=== PATIENT | female | born 1955 | race Caucasian/White ===

== ENCOUNTER 2018-02-17 18:29 | Outpatient (REF) | payer MEDICAID, SELFPAY ==
[2018-02-17 21:39] LABS: INR 1.1 (1.0-3.5); Prothrombin Time 10.4 sec (9.3-10.8)
[2018-02-17 21:42] LABS: ALT 29 U/L (12-78); AST 18 U/L (15-37); Albumin 3.6 g/dL (3.4-5.0); Alkaline Phosphatase 115 U/L (46-116); Anion Gap 9.8 mmol/L (3-11); BUN 15 mg/dL (7-18); Bilirubin, Total 0.3 mg/dL (0.2-1.0); CO2 28.2 mmol/L (21.0-32.0); CREATININE 0.74 mg/dL (0.55-1.02); Chloride 102 mmol/L (98-107); Glucose 140 mg/dL (70-100); Lipase 104 U/L (73-393); Potassium 3.7 mmol/L (3.5-5.1); Sodium 140 mmol/L (136-145); Total Protein 6.6 g/dL (6.4-8.2)
[2018-02-17 21:55] LABS: HCT 42.3 % (36.0-46.0); HGB 14.7 g/dL (12.0-15.5); Mean Corp. HGB Concentration 34.8 g/dL (32.0-36.0); Mean Corpuscular Hemoglobin 30.1 pg (27.0-33.0); Mean Corpuscular Volume 86.7 fL (80-95); Mean Platelet Volume 11.5 fL (8.0-11.0); Platelet Count 265 x1000/uL (130-400); RBC 4.88 m/cumm (4.00-5.20); RBC Distribution Width 12.8 % (11.7-14.6); White Blood Cell Count 8.25 k/cumm (4.4-10.8)
== END 2018-02-17 18:49 ==
LOC: NCHCN 18:29
PROVIDERS: PCP Nurse Practitioner Family; Visit Provider Internal Medicine
DX: K92.0 Hematemesis (principal); R10.31 Right lower quadrant pain
CPT/HCPCS: 80053; 83690; 85027; 85610

== ENCOUNTER 2018-02-22 11:45 | Day surgery (SDC) | payer MEDICAID, SELFPAY ==
[2018-02-22 11:50] VITALS: BP 169/72; PULSE 57; RESP 16; TEMP 36.4; O2SAT 99
[2018-02-22] MEDS: Lactated Ringers 1,000 ML 30 ML IV (12:45)
--- NOTE | 2018-02-22 16:34 | W.PM.OP ---
Date of service: 02/22/18 Time of Service: 16:35 Operative Note DATE OF PROCEDURE: 02/22/18 PRE-OP DIAGNOSIS: Hematemesis POST-OP DIAGNOSIS: other (Normal upper gastrointestinal endoscopy) PROCEDURE: Esophagogastroduodenoscopy SURGEON: Eduardo Foster ANESTHESIA: MAC (Paulette Zee CRNA; ASA 3 Mallampati class II) ESTIMATED BLOOD LOSS: 0 PATHOLOGY: none sent COMPLICATIONS: None Patient was transported to: same day Patient's condition: stable Indications: 62-year-old female who approximately 1 week ago had a episode of hematemesis. She describes feeling a sharp burning pain in her stomach several hours after eating; this was followed by throwing up blood in the form of coffee-ground emesis. She only had the one episode and has had no hematemesis and since then. She denies any melena. Was recommended she undergo upper endoscopy. The procedure was reviewed with her, and the risks discussed. All her questions were answered to her satisfaction. Consent was obtained to proceed with esophagogastroduodenoscopy. Findings: On examining the upper gastrointestinal tract from the oropharynx to the third portion of the duodenum, no abnormalities were found. No active bleeding was seen nor evidence of stigmata of bleeding. Procedure Description: The patient was brought to the procedure room. Monitoring for telemetry, end-tidal CO2, O2 saturation, blood pressure were applied. An appropriate timeout was taken reviewing the patient's identification, allergies, medications,and procedure. A bite was placed, and sedation was titrated for effect by the MACHINE ZIPPER TRIMMER. An Olympus variable stiffness endoscope was advanced from the oropharynx to the third portion of the duodenum without difficulty. The scope was then withdrawn in circumferential manner from the duodenum back to the oropharynx. In performing withdrawal of the scope, the duodenum appeared grossly normal. The scope was withdrawn into the gastric antrum and retroflexed to examine the entire stomach, and no abnormalities of the gastric antrum, anterior, posterior surfaces of the stomach, lesser curvature, greater curvature, and fundus were noted. The scope was then withdrawn to the GE junction which I measured at 35 cm The Z line was at 35 cm and appeared regular. I withdrew the scope through the remainder of the esophagus all which appear grossly normal. Scope was then withdrawn terminating the upper endoscopy. Plan: No cause for hematemesis seen on upper endoscopy.
--- NOTE | 2018-02-22 16:42 | W.PM.DSUDISC ---
Discharge Plan Disposition Patient Disposition: HOME Condition: Good Discharge Details Reason For Visit: HEMATEMESIS Attending Provider: Eduardo Foster Primary Care Provider: Irena Sesay Home Meds and New Rx's Prescriptions: Continue pantoprazole [address] for susp in packet 40 mg PO BID RF: 0 diltiazem HCl 180 mg capsule,extended release 24hr 180 mg PO DAILY RF: 0 pravastatin 40 MG tablet 40 mg PO DAILY RF: 0 aspirin [Aspir-Low] 81 MG tablet,delayed release (DR/EC) 81 mg PO DAILY RF: 0 losartan 100 MG tablet 100 mg PO DAILY RF: 0 Discharge Instructions Instructions: Upper Endoscopy (DC) Activity:: Activity as Tolerated Diet:: As Tolerated Discharge Orders Discharge Orders: Discharge Order (Routine); Ordered 02/22/18 Ordered By: Eduardo Foster DS: Diagnosis Discharge Diagnosis (1) Hematemesis: Status: Acute Asessment and Plan: Upper endoscopy performed: Operative Note DATE OF PROCEDURE: 02/22/18 PRE-OP DIAGNOSIS: Hematemesis POST-OP DIAGNOSIS: other (Normal upper gastrointestinal endoscopy) PROCEDURE: Esophagogastroduodenoscopy SURGEON: Eduardo Foster ANESTHESIA: MAC (Paulette Zee CRNA; ASA 3 Mallampati class II) ESTIMATED BLOOD LOSS: 0 PATHOLOGY: none sent COMPLICATIONS: None Patient was transported to: same day Patient's condition: stable Indications: 62-year-old female who approximately 1 week ago had a episode of hematemesis. She describes feeling a sharp burning pain in her stomach several hours after eating; this was followed by throwing up blood in the form of coffee-ground emesis. She only had the one episode and has had no hematemesis and since then. She denies any melena. Was recommended she undergo upper endoscopy. The procedure was reviewed with her, and the risks discussed. All her questions were answered to her satisfaction. Consent was obtained to proceed with esophagogastroduodenoscopy. Findings: On examining the upper gastrointestinal tract from the oropharynx to the third portion of the duodenum, no abnormalities were found. No active bleeding was seen nor evidence of stigmata of bleeding. Procedure Description: The patient was brought to the procedure room. Monitoring for telemetry, end-tidal CO2, O2 saturation, blood pressure were applied. An appropriate timeout was taken reviewing the patient's identification, allergies, medications,and procedure. A bite was placed, and sedation was titrated for effect by the CAMPUS POLICE OFFICER. An Olympus variable stiffness endoscope was advanced from the oropharynx to the third portion of the duodenum without difficulty. The scope was then withdrawn in circumferential manner from the duodenum back to the oropharynx. In performing withdrawal of the scope, the duodenum appeared grossly normal. The scope was withdrawn into the gastric antrum and retroflexed to examine the entire stomach, and no abnormalities of the gastric antrum, anterior, posterior surfaces of the stomach, lesser curvature, greater curvature, and fundus were noted. The scope was then withdrawn to the GE junction which I measured at 35 cm The Z line was at 35 cm and appeared regular. I withdrew the scope through the remainder of the esophagus all which appear grossly normal. Scope was then withdrawn terminating the upper endoscopy. Plan: No cause for hematemesis seen on upper endoscopy.
[2018-02-22 16:49] VITALS: PULSE 61; RESP 16; TEMP 36.2; O2SAT 95
== END 2018-02-22 17:05 | disposition home or self-care (01) ==
PROVIDERS: PCP Nurse Practitioner Family; Visit Provider Surgery
PROC: 0DJ68ZZ Inspection of Stomach, Via Natural or Artificial Opening Endoscopic (ICD-10-PCS; CPT 43235; principal; 2018-02-22 14:00)
DX: K92.0 Hematemesis (principal); K21.9 Gastro-esophageal reflux disease without esophagitis
CPT/HCPCS: 43235

== ENCOUNTER 2018-06-28 10:37 | Outpatient (REF) | payer MEDICAID, SELFPAY ==
[2018-06-28 12:40] LABS: TSH (W/Ref FT4) 3.25 uIU/mL (0.358-3.74)
[2018-06-29 10:26] LABS: Hepatitis C Ab w Rflx HCV PCR Negative (NEGAT)
== END 2018-06-28 10:57 ==
LOC: NCHCN 10:37
PROVIDERS: PCP Nurse Practitioner Family; Visit Provider Nurse Practitioner Family
DX: E03.9 Hypothyroidism, unspecified (principal); R60.0 Localized edema; R00.1 Bradycardia, unspecified; F32.9 Major depressive disorder, single episode, unspecified; E78.5 Hyperlipidemia, unspecified; K21.9 Gastro-esophageal reflux disease without esophagitis; Z11.59 Encounter for screening for other viral diseases
CPT/HCPCS: 86803; 84443

== ENCOUNTER 2018-08-09 17:57 | Outpatient (REF) | payer MEDICAID, SELFPAY ==
[2018-08-09 21:26] LABS: HGB 15.6 g/dL (12.0-15.5); Mean Corp. HGB Concentration 34.7 g/dL (32.0-36.0); Mean Corpuscular Hemoglobin 29.5 pg (27.0-33.0); Mean Corpuscular Volume 85.2 fL (80-95); Mean Platelet Volume 11.6 fL (8.0-11.0); Platelet Count 301 x1000/uL (130-400); RBC 5.28 m/cumm (4.00-5.20); RBC Distribution Width 12.8 % (11.7-14.6); White Blood Cell Count 14.42 k/cumm (4.4-10.8)
[2018-08-09 21:33] LABS: ALT 32 U/L (12-78); AST 19 U/L (15-37); Albumin 3.9 g/dL (3.4-5.0); Alkaline Phosphatase 108 U/L (46-116); Anion Gap 9.3 mmol/L (3-11); BUN 9 mg/dL (7-18); Bilirubin, Total 0.4 mg/dL (0.2-1.0); CO2 26.7 mmol/L (21.0-32.0); CREATININE 0.69 mg/dL (0.55-1.02); Chloride 102 mmol/L (98-107); Glucose 120 mg/dL (70-100); Potassium 3.9 mmol/L (3.5-5.1); Sodium 138 mmol/L (136-145); Total Protein 7.2 g/dL (6.4-8.2)
[2018-08-09 22:18] LABS: Bilirubin Negative (Negative); Blood Large (Negative); Glucose >=1000 mg/dL (Negative); Ketones Trace mg/dL (Negative); Leukocyte Esterase Negative (Negative); Nitrite Negative (Negative); Specific Gravity 1.025 (1.005-1.025); Urobilinogen 0.2 EU/dL (Up TO 0.2); pH 6.5 (5-8)
[2018-08-09 22:20] LABS: Clarity Cloudy
[2018-08-09 22:21] LABS: RBC >50 (0-2)
[2018-08-09 22:22] LABS: C & S Indicated? Yes
== END 2018-08-09 18:17 ==
LOC: NCHCN 17:57
PROVIDERS: PCP Nurse Practitioner Family; Visit Provider Nurse Practitioner Family
DX: R31.9 Hematuria, unspecified (principal); N95.0 Postmenopausal bleeding
CPT/HCPCS: 80053; 85027; 87077; 81003; 81015; 87086; 87186

== ENCOUNTER 2018-08-10 10:24 | Outpatient (CLI) | payer MEDICAID, SELFPAY ==
--- NOTE | 2018-08-10 14:01 | DI.US_ITS ---
SYMPTOMS/DIAGNOSIS: HEMATURIA, R31.9, POSTMENOPAUSAL BLEEDING, N95.0 RENAL AND PELVIC ULTRASOUND: The right kidney measures 11.6 cm long, the left kidney measures 11.6 cm long. No renal mass, calculus or obstruction is identified. The prevoid urinary bladder volume was 63 cc. Both ureteral jets were visualized. No intraluminal mass is seen. The patient completely emptied upon voiding. The uterus measures 9.2 cm long x 4.3 cm AP x 5.1 cm transverse. The endometrial stripe measures 0.7 cm. It is heterogeneous with cystic areas noted. No myometrial mass is present. Both the ovaries were visualized and are unremarkable. No free pelvic fluid is identified. IMPRESSION: 1. Normal renal ultrasound. No evidence of nephrolithiasis or obstructive uropathy. 2. Heterogeneous thickened endometrium. This may represent cystic hyperplasia. Mass cannot be excluded such as a polyp. Gynecologic consult should be considered for further evaluation.
== END 2018-08-10 10:44 ==
PROVIDERS: PCP Nurse Practitioner Family; Visit Provider Nurse Practitioner Family
DX: R31.9 Hematuria, unspecified (principal); N95.0 Postmenopausal bleeding; R93.89 Abnormal findings on diagnostic imaging of other specified body structures
CPT/HCPCS: 76770; 76830; 76856

== ENCOUNTER 2018-08-11 14:33 | Outpatient (REF) | payer MEDICAID, SELFPAY ==
--- NOTE | 2018-08-11 13:40 | PAPFT_PTH ---
PATIENT: Maryanne Carrasco LOC: [facility] U#:[id number] AGE/SX: 63/F ROOM: RE08/11/[address]: Mane Pearl MD : 1955 BED: DIS: 08/11/2018 SPEC #: [id number] RECD: 08/11/18 17:41 STATUS: WALLY REAlex #: [id number] NOLAN: 08/11/18 13:[address]: Mane Pearl DEPT: [facility] Cytology RECD BY: Yulissa Howard ENTERED: 08/11/18 17:41 SP TYPE: PAPFT DANIEHR DR: Irena Sesay Tissues: 1 - CX/ENDOCX FOR PAP SMEARS Procedures: PAP THIN PREP/UVM Screening HPV DNA PROBE Comments: [id number]
--- NOTE | 2018-08-11 13:40 | ENDOMET_PTH ---
PATIENT: Maryanne Carrasco LOC: [facility] U#:[id number] AGE/SX: 63/F ROOM: RE08/11/[address]: Mane Pearl MD : 1955 BED: DIS: 08/11/2018 SPEC #: [id number] RECD: 08/11/18 17:39 STATUS: WALLY REQ #: [id number] NOLAN: 08/11/18 13:[address]: Mane Pearl DEPT: Surgical Specimen RECD BY: Yulissa Howard ENTERED: 08/11/18 17:39 SP TYPE: Endomet OTHR DR: Irena Sesay Tissues: 1 - ENDOMETRIUM BX/ALEXANDER Procedures: GROSS AND MICRO LEVEL 4 Comments: [id number]
== END 2018-08-11 14:53 ==
LOC: LBN 14:33
PROVIDERS: PCP Nurse Practitioner Family; Visit Provider Obstetrics & Gynecology
DX: N85.8 Other specified noninflammatory disorders of uterus (principal); N95.0 Postmenopausal bleeding; Z12.4 Encounter for screening for malignant neoplasm of cervix; Z11.51 Encounter for screening for human papillomavirus (HPV)
CPT/HCPCS: 88142; 88305; 87624

== ENCOUNTER 2018-08-19 02:02 | Outpatient (CLI) | payer MEDICAID, SELFPAY ==
--- NOTE | 2018-08-19 09:19 | DI.MAMMO_ITS ---
SYMPTOMS/DIAGNOSIS: SCREENING, Z12.39 MAMMOGRAMS: Mammograms were interpreted according to the usual protocol including computer analysis with CAD system, tomosynthesis and C view imaging. The breasts are of moderate density with fairly symmetrical distribution of fibroglandular tissue. No dominant mass or clumped microcalcification is identified in either breast. Current examination is compared with previous examinations including August 2017 and there has been no gross interval change in appearance in comparison with the previous studies. CONCLUSION: No specific evidence of malignancy at this time. Routine screening examinations are suggested at yearly intervals due to the family history of breast carcinoma. Category 1, breast density category B. MQSA ASSESSMENT OF FINDINGS: Negative. Category 1. Patient will receive a letter notifying them of these results. BI-RADS category B. There are scattered areas of fibroglandular density.
== END 2018-08-19 02:22 ==
PROVIDERS: PCP Nurse Practitioner Family; Visit Provider Nurse Practitioner Family
DX: Z12.31 Encounter for screening mammogram for malignant neoplasm of breast (principal); Z80.3 Family history of malignant neoplasm of breast
CPT/HCPCS: 77063; 77067

== ENCOUNTER 2018-08-25 11:03 | Outpatient (REF) | payer MEDICAID, SELFPAY ==
[2018-08-25 14:11] LABS: Bilirubin Negative (Negative); Blood Trace-intact (Negative); Clarity Clear; Glucose Negative (Negative); Ketones Negative (Negative); Leukocyte Esterase Negative (Negative); Nitrite Negative (Negative); Specific Gravity 1.025 (1.005-1.025); Urobilinogen 0.2 EU/dL (Up TO 0.2); pH 6.5 (5-8)
[2018-08-25 14:42] LABS: Epithelial Cells Many HPF (Negative); WBC 0-2 HPF (0-5)
[2018-08-25 14:43] LABS: C & S Indicated? No/Sq. Contamination
== END 2018-08-25 11:23 ==
LOC: LBN 11:03
PROVIDERS: PCP Nurse Practitioner Family; Visit Provider Urology
DX: N30.91 Cystitis, unspecified with hematuria (principal)
CPT/HCPCS: 81003; 81015

== ENCOUNTER 2018-11-30 00:52 | Outpatient (CLI) | payer MEDICAID, SELFPAY ==
--- NOTE | 2018-11-30 14:23 | DI.US_ITS ---
SYMPTOMS/DIAGNOSIS: POSTMENOPAUSAL BLEEDING, N95.0, HEMATURIA, R31.9 RENAL PELVIC ULTRASOUND: Pelvic ultrasound was performed transabdominally and transvaginally. Please see the accompanying data sheet for measurements of the pelvic structures. Scanning of the kidneys is unremarkable with no hydronephrosis or nephrolithiasis. There is marked endometrial stripe thickening at about 17 mm, increased from approximately 7 mm on the previous examination of August 10, 2018. The ovaries were nonvisualized. No fluid in the cul-de-sac. Urinary bladder is unremarkable. CONCLUSION: Heterogeneous thickening endometrial lining. This is an abnormal finding in a postmenopausal patient and endometrial biopsy should be considered.
== END 2018-11-30 01:12 ==
PROVIDERS: PCP Nurse Practitioner Family; Visit Provider Nurse Practitioner Family
DX: N95.0 Postmenopausal bleeding (principal); R31.9 Hematuria, unspecified; R93.89 Abnormal findings on diagnostic imaging of other specified body structures
CPT/HCPCS: 76770; 76830; 76856

== ENCOUNTER 2018-12-30 12:55 | Outpatient (CLI) | payer MEDICAID, SELFPAY ==
[2018-12-30 14:21] LABS: HCT 41.2 % (36.0-46.0); HGB 14.4 g/dL (12.0-15.5); Mean Corpuscular Hemoglobin 29.4 pg (27.0-33.0); Mean Corpuscular Volume 84.3 fL (80-95); Mean Platelet Volume 11.2 fL (8.0-11.0); Platelet Count 282 x1000/uL (130-400); RBC 4.89 m/cumm (4.00-5.20); RBC Distribution Width 12.7 % (11.7-14.6); White Blood Cell Count 9.32 k/cumm (4.4-10.8)
== END 2018-12-30 13:15 ==
PROVIDERS: PCP Nurse Practitioner Family; Visit Provider Obstetrics & Gynecology
DX: N95.0 Postmenopausal bleeding (principal); Z01.812 Encounter for preprocedural laboratory examination; Z01.818 Encounter for other preprocedural examination
CPT/HCPCS: 36415; 85027

== ENCOUNTER 2019-01-04 07:06 | Day surgery (SDC) | payer MEDICAID, SELFPAY ==
[2018-12-30 13:11] VITALS: BP 154/87; PULSE 56; RESP 17; TEMP 36.5; O2SAT 96
[2019-01-04] VITALS (7 sets, daily range): BP systolic 118–161; BP diastolic 59–80; PULSE 52–60; RESP 9–24; TEMP 36.2–36.6; O2SAT 96–100
[2019-01-04] MEDS: Lactated Ringers 1,000 ML 125 ML IV (07:43)
[2019-01-04] MEDS: Lidocaine 1% Pres-Free 5 ML VIAL (08:42)
--- NOTE | 2019-01-04 09:42 | W.PM.OP ---
Date of service: 01/04/19 Time of Service: 09:42 Operative Note Operative Note DATE OF PROCEDURE: 01/04/19 PRE-OP DIAGNOSIS: PMB. Thickened EM on ultrasound POST-OP DIAGNOSIS: same PROCEDURE: Hysteroscopy D&C SURGEON: Mane Pearl ANESTHESIA: OMAYRA ESTIMATED BLOOD LOSS: 0 PATHOLOGY: other (Endometrial curettings) COMPLICATIONS: None Patient was transported to: PACU Patient's condition: stable Findings: Two small polyps at the level of the internal OS. Mildly thickened region along the posterior uterine wall. Procedure Description: The patient was taken to the operating room and after adequate sedation was achieved the patient was placed in lithotomy position. A speculum was placed in the vagina with good visualization of the cervix. A paracervical block with 10 cc 1% plain lidocaine solution was instilled. A single-tooth tenaculum was placed on the anterior lip of the cervix. The cervix was gently dilated with Gorman dilators and the 5 mm hysteroscope with normal saline distention media was advanced without difficulty. There were 2 small polyps noted at the level of the internal loss. The posterior uterus was minimally thickened. The remainder of the endometrial cavity showed normal and atrophic appearing endometrium. A sharp curettage was performed and specimen was submitted to pathology. A second pass with hysteroscope was made to ensure that the aforementioned polyps were completely removed. The procedure was concluded at this point. Almost mentation was removed. Sponge, instrument and needle counts were correct at the conclusion of the procedure. The patient was transferred to PACU in stable condition.
--- NOTE | 2019-01-04 09:48 | ENDOMET_PTH ---
PATIENT: Maryanne Carrasco LOC: [facility] U#:[id number] AGE/SX: 63/F ROOM: RE01/04/[address]: Mane Pearl MD : 1955 BED: DIS: 01/04/2019 SPEC #: [id number] RECD: 01/04/19 12:48 STATUS: WALLY REQ #: [id number] NOLAN: 01/04/19 09:[address]: Mane Pearl DEPT: Surgical Specimen RECD BY: Yulissa Howard ENTERED: 01/04/19 12:49 SP TYPE: Endomet OTHR DR: Irena Sesay Tissues: 1 - ENDOMETRIUM BX/ALEXANDER Procedures: GROSS AND MICRO LEVEL 4 Comments: [id number]
== END 2019-01-04 10:36 | disposition home or self-care (01) ==
PROVIDERS: PCP Nurse Practitioner Family; Visit Provider Obstetrics & Gynecology
PROC: 0UDB8ZZ Extraction of Endometrium, Via Natural or Artificial Opening Endoscopic (ICD-10-PCS; CPT 58558; principal; 2019-01-04 09:15)
DX: N95.0 Postmenopausal bleeding (principal); R93.89 Abnormal findings on diagnostic imaging of other specified body structures; N84.0 Polyp of corpus uteri; K21.9 Gastro-esophageal reflux disease without esophagitis; I10 Essential (primary) hypertension
CPT/HCPCS: 58558; 88305; J1100; J1885; J2405

== ENCOUNTER 2019-01-07 16:37 | Emergency (ER) | payer MEDICAID, SELFPAY ==
[2019-01-07 16:41] VITALS: BP 153/60; PULSE 78; RESP 16; TEMP 37.5; O2SAT 95
[2019-01-07 16:50] LABS: Bilirubin Small (Negative); Clarity Turbid (Clear); Glucose Negative (Negative); Ketones Negative (Negative); Leukocyte Esterase Small (Negative); Nitrite Positive (Negative); Specific Gravity >= 1.030 (1.005-1.025); pH 5.5 (5-8)
[2019-01-07 16:52] LABS: Blood Large (Negative)
--- NOTE | 2019-01-07 16:56 | W.ED.GENAD ---
Discharge Plan Disposition Patient Disposition: HOME Condition: Good Discharge Details Chief Complaint: Urinary Clinical Impression: Acute UTI Primary Care Provider: Irena Sesay ED Provider: Irena Mayorga Home Meds and New Rx's Prescriptions: New cephalexin [Keflex] 500 mg capsule 500 mg PO QID Qty: 27 RF: 0 phenazopyridine [Pyridium] 200 mg tablet 200 mg PO TID Qty: 6 RF: 0 No Action Cardizem LA 120 mg tablet extended release 24 hr 120 mg PO HS RF: 0 hydrochlorothiazide 12.5 mg capsule 12.5 mg PO DAILY RF: 0 pravastatin 40 MG tablet 40 mg PO HS RF: 0 losartan 100 MG tablet 100 mg PO HS RF: 0 Discharge Instructions Instructions: Urinary Tract Infection in Women (ED) Additional Instructions: Drink plenty of water as discussed. Use Pyridium as prescribed. This will stay in your urine a reddish-orange color for the next 2 days. Use antibiotic as prescribed. Urine culture pending. Rest activities as tolerated. Follow-up with Dr. Pearl in the office as discussed. Return to the emergency room for worsening symptoms, alarming symptoms such as increased abdominal pain, fevers, ill feeling, or if improvement does not occur as expected as discussed or for any changes in your symptoms as discussed. Medical Decision Making 63-year-old patient presents for complaints of hematuria, dysuria, urgency and frequency of urination. Patient is unsure if she has vaginal spotting. Patient reports lower abdominal cramping intermittently. Patient is 3 days status post D&C with Dr. Pearl. Patient is concerned that the D&C is related to the symptoms she is experiencing at this time. Patient denies back pain or associated CVA tenderness. Patient in general is well-appearing. Concerns of possible UTI versus complication status post D&C. Patient's urinalysis is impressive for likely urinary tract infection. Although UTI seems clear the possibility of endometrial injury versus endometritis remains in the differential. I spoke with on-call MACHINE PROGRAMMER Dr. Alvarez regarding this case and the lack of ultrasound at this time. She is coming to the hospital and will evaluate the patient at the bedside for concern of possible endometritis to be sure we are treating her appropriately and she needs no additional imaging testing at this time. Patient is relieved to hear the MACHINE PROGRAMMER doctor will evaluate her and feels very comfortable with this plan of care. Patient provided p.o. fluids by mouth to encourage hydration. Dr. Rubi Block evaluated patient at the bedside and performed pelvic exam feels patient has no indication at this time for endometritis or cervical motion tenderness per her report. She recommends antibiotic treatment for UTI and follow-up in the office with Dr. Pearl. Plan of care includes Keflex as well as Pyridium initial dose prior to discharge and prescriptions provided for home. The patient was stable and agrees with discharge. Prior to discharge, my usual and customary return precautions were reviewed with the patient - this included follow-up instructions and reasons to return to the Emergency Department if conditions worsens, does not improve as expected, or other new concerns arise. HPI General Date/Time Provider Initiated Documentation: 01/07/19 16:48. HPI Narrative: 63-year-old woman presents for complaints of urinary urgency, dysuria, frequency, hematuria and question of vaginal spotting when wiping. Patient reports mild lower abdominal cramping all which began today. Patient is concerned as she had a D&C for endometrial thickening 3 days ago with women's wellness specifically Dr. Pearl. Patient was feeling well for the last 3 days then today had onset of symptoms. Patient feels this may be urinary tract infection and she did have a similar urinary tract infection in August however is concerned with her recent D&C procedure. Patient reports abdominal cramping is intermittent. Patient denies back pain, fever, chills, nausea, vomiting. No abdominal distention. No feeling of syncope. Eating and drink without difficulty. No bowel changes. No other concerning complaint at this time. Related Data Home Medications Medication Instructions Recorded Confirmed losartan 100 mg PO HS tab-cap 07/04/15 01/07/19 pravastatin 40 mg PO HS tab-cap 07/04/15 01/07/19 diltiazem HCl 120 mg 120 mg PO HS 12/15/18 01/07/19 tablet,extended release 24 hr hydrochlorothiazide 12.5 mg capsule 12.5 mg PO DAILY 12/15/18 01/07/19 cephalexin [Keflex] 500 mg PO QID #27 cap 01/07/19 phenazopyridine [Pyridium] 200 mg PO TID #6 tab 01/07/19 Previous Rx's Medication Instructions Recorded cephalexin [Keflex] 500 mg PO QID #27 cap 01/07/19 phenazopyridine [Pyridium] 200 mg PO TID #6 tab 01/07/19 Allergies Allergy/AdvReac Type Severity Reaction Status Date / Time metoprolol Allergy Severe unknown Verified 01/07/19 17:02 Penicillins Allergy Intermediate Hives Unverified 01/07/19 17:02 amitriptyline AdvReac Severe Visual Unverified 01/07/19 17:02 Disturbances lisinopril AdvReac Mild nausea Unverified 01/07/19 17:02 General Stated Complaint: Urinary JOANNE: 4 Review of Systems Review of Systems ROS Unobtainable: All systems reviewed & are unremarkable except as noted in HPI and below Constitutional Constitutional: Denies chills, Denies fever(s) and Denies weakness Gastrointestinal Gastrointestinal: Reports cramping, Denies nausea and Denies vomiting Genitourinary Genitourinary: Reports urinary frequency, Reports dysuria, Denies flank pain, Reports urinary urgency and Denies vaginal pruritus Neurologic Neurologic: Denies weakness [facility] Medical History Bradycardia (Acute) Colonic polyp (Acute) Depression (Chronic) Dyspnea on exertion (Acute) Endometrial hyperplasia (Acute) Epigastric pain (Acute) GERD (gastroesophageal reflux disease) (Chronic) Hematemesis (Acute) Hematuria (Acute) Hyperlipidemia (Acute) Hypertension (Chronic) Insomnia (Acute) Left knee pain (Acute) Menopause (Acute) Obesity (Chronic) Pedal edema (Acute) Restless leg syndrome (Acute) Snoring (Acute) Stress incontinence (Acute) Subclinical hypothyroidism (Acute) Surgical History History of esophagogastroduodenoscopy (EGD) (Resolved 02/22/18) dr vivas, normal Hx of colonoscopy (Chronic) Tubal Ligation, Laparoscopic Family History Maternal Uncle Colon cancer Maternal Aunt Colon cancer Social History Smoking/Tobacco Use Status: Never Alcohol Intake: current Alcohol Intake frequency: a few times a month Alcohol type: beer Drug use: Never Substance use type: does not use Do you feel safe at home: Yes Do you feel safe in your relationship?: Yes Exam Narrative Exam Narrative: CONST: Healthy appearing patient, in no acute distress. Well hydrated. Alert and alert. HENMT: Head nomocephalic, normal to inspection. Atraumatic. Hearing grossly normal. EYES: General normal appearance. Alignment normal. Eyelids normal. Conjunctiva normal. NECK: Normal visual inspection. FROM. Trachea midline. No Midline tenderness. CHEST: Normal insepection of the chest. RESP: Normal respiratory effort. Speaking full sentences. No cough. No audible wheezing. No retractions. CARDIO: No JVD. Abdomen; no peritoneal signs, rebound, guarding. Bowel sounds present in all 4 quadrants. Mild suprapubic discomfort with palpation. Back; no CVA tenderness mUSCULOSKELETAL: Normal Gait. FROM of all extremities. SKIN: Normal. Dry. No rashes. NEURO: Alert and awake. Speech clear. PSYCH: Normal affect. Cooperative. Course Vital Signs Vital signs: Vital Signs Temperature 37.5 C 01/07/19 16:41 Pulse 78 01/07/19 16:41 Respiratory Rate 16 01/07/19 16:41 Blood Pressure 153/60 H 01/07/19 16:41 Pulse Oximetry 95 01/07/19 16:41 Temperature 37.5 C 01/07/19 16:41 Temperature Source Skin 01/07/19 16:41 Pulse 78 01/07/19 16:41 Respiratory Rate 16 01/07/19 16:41 Respiratory Effort 01/07/19 16:41 Blood Pressure 153/60 H 01/07/19 16:41 Pulse Oximetry 95 01/07/19 16:41 Pain Level 10 01/07/19 16:41 Lab/Test Results Lab/Test Results: Laboratory Tests Range/Units 01/07/19 16:45 Urine Color (Yellow) Brown Urine Clarity (Clear) Turbid Urine pH (5-8) 5.5 Ur Specific Morrison (1.005-1.025) >= 1.030 H Urine Protein (Negative) mg/dL >=300 H Urine Ketones (Negative) mg/dL Negative Urine Blood (Negative) Large H Urine Nitrite (Negative) Positive H Urine Bilirubin (Negative) Small H Urine Urobilinogen (Up TO 0.2) EU/dL 1.0 H Ur Leukocyte Esterase (Negative) Small H Urine Glucose (Negative) mg/dL Negative
[2019-01-07 17:00] LABS: C & S Indicated? Yes; RBC >50 (0-2)
[2019-01-07 18:11] VITALS: BP 153/60; PULSE 78; RESP 16; TEMP 37.5; O2SAT 95
[2019-01-07] MEDS: Cephalexin 500 MG CAP PO (18:12)
[2019-01-07] MEDS: Phenazopyridine 200 MG TAB PO (18:12)
--- NOTE | 2019-01-07 18:35 | W.GYNCONSULT ---
Date of service: 01/07/19 Time of Service: 18:35 Assessment and Plan Assessment and plan (1) History of D&C: Status: Acute Assessment and plan: Patient has a follow-up appointment with Dr. Pearl 01/12/2019 for discussion regarding the results of D&C. She was instructed to call the office in the event of worsening symptoms of dysuria and urinary urgency. (2) UTI (urinary tract infection): Status: Acute History of Present Illness History of Present Illness Chief Complaint: Dysuria and hematuria after a D&C on 01/04/2019 Narrative: Patient is a 63-year-old postmenopausal female who underwent a uncomplicated hysteroscopy D&C on 01/04/2019 for a thickened endometrial stripe and history of postmenopausal bleeding. At the time of surgery to small polyps within the endometrial cavity were noted otherwise the lining appeared atrophic. Surgical pathology is currently pending. Patient had no vaginal discharge since her D&C she began experiencing urinary urgency yesterday and hematuria today. She describes pelvic cramping but no focal uterine tenderness. She was concerned and wanted to make sure that her symptoms were not a uterine infection. Review of Systems Constitutional Constitutional: Reports chills (Denies) and Reports fever(s) Cardiovascular Cardiovascular: Reports system reviewed and no additional complaints, except as docu Respiratory Respiratory: Reports system reviewed and no additional complaints, except as docu Gastrointestinal Gastrointestinal: Reports system reviewed and no additional complaints, except as docu Genitourinary Genitourinary: Reports hematuria, Reports dysuria (For approximately 24 hours), Reports flank pain (Denies) and Reports urinary incontinence (Denies) Musculoskeletal Musculoskeletal: Reports system reviewed and no additional complaints, except as docu [facility] Medical History (Updated 01/07/19 @ 18:43 by Quiana Alvarez MD) Bradycardia (Acute) Colonic polyp (Acute) Depression (Chronic) Dyspnea on exertion (Acute) Endometrial hyperplasia (Acute) Epigastric pain (Acute) GERD (gastroesophageal reflux disease) (Chronic) Hematemesis (Acute) Hematuria (Acute) Hyperlipidemia (Acute) Hypertension (Chronic) Insomnia (Acute) Left knee pain (Acute) Menopause (Acute) Obesity (Chronic) Pedal edema (Acute) Restless leg syndrome (Acute) Snoring (Acute) Stress incontinence (Acute) Subclinical hypothyroidism (Acute) UTI (urinary tract infection) (Acute) 01/04/2019. Presented to ED 3 days after D&C and hysteroscopy. Cultures pending. Rx with Keflex. Surgical History (Updated 01/07/19 @ 18:40 by Quiana Alvarez MD) History of D&C (Acute) 01/04/2019 with hysteroscopy. Findings: Atrophic endometrium to lower uterine segment polyps. History of esophagogastroduodenoscopy (EGD) (Resolved 02/22/18) dr vivas, normal Hx of colonoscopy (Chronic) Tubal Ligation, Laparoscopic Family History Maternal Uncle Colon cancer Maternal Aunt Colon cancer Social History Smoking/Tobacco Use Status: Never Alcohol Intake: current Alcohol Intake frequency: a few times a month Alcohol type: beer Drug use: Never Substance use type: does not use Do you feel safe at home: Yes Do you feel safe in your relationship?: Yes Exam Const General: no acute distress Orientation: alert, awake and oriented x3 Resp Effort & Inspection: normal respiratory effort GI Inspection: normal to inspection Palpation: soft and no hepatosplenomegaly (No guarding rebound or masses, no focal uterine tenderness) General: bimanual renal exam normal bilaterally External Female Exam: external appearance normal Bimanual Exam- Vagina & Uterus: normal bimanual exam, normal vaginal palpation, uterine size normal and uterus non-tender Bimanual Exam- Adnexa, other: normal adnexae, adnexae mobile, no adnexal masses and adnexae non-tender Results Last Vital Signs Temp 99.5 F 01/07/19 18:11 Pulse 78 01/07/19 18:11 Resp 16 01/07/19 18:11 BP 153/60 H 01/07/19 18:11 Pulse Ox 95 01/07/19 18:11 Labs Labs: Laboratory Results - last 24 hr 01/07/19 16:45 Urine Color Brown Urine Clarity Turbid Urine pH 5.5 Ur Specific Hamer >= 1.030 H Urine Protein >=300 H Urine Ketones Negative Urine Blood Large H Urine Nitrite Positive H Urine Bilirubin Small H Urine Urobilinogen 1.0 H Ur Leukocyte Esterase Small H Urine RBC >50 H Urine WBC Ur Epithelial Cells Not Applicable Urine Crystals Not Applicable Urine Bacteria Not Applicable Urine Mucus Not Applicable Ur Culture Indicated? Yes Urine Glucose Negative
== END 2019-01-07 18:19 | disposition home or self-care (01) ==
PROVIDERS: Emergency Provider Physician Assistant; PCP Nurse Practitioner Family
DX: N39.0 Urinary tract infection, site not specified (principal); B96.20 Unspecified Escherichia coli [E. coli] as the cause of diseases classified elsewhere
CPT/HCPCS: 36415; 87077; 99283; 81003; 81015; 87086; 87186

== ENCOUNTER 2019-01-20 21:40 | Outpatient (REF) | payer MEDICAID, SELFPAY | END 2019-01-20 22:00 | LOC: NCHCN 21:40 | PROVIDERS: PCP Nurse Practitioner Family; Visit Provider Nurse Practitioner Family | DX: R31.9 Hematuria, unspecified (principal) | CPT/HCPCS: 87077; 87086; 87186 ==

== ENCOUNTER 2019-04-07 11:41 | Emergency (ER) | payer MEDICAID, SELFPAY ==
[2019-04-07 11:46] VITALS: BP 164/91; PULSE 70; RESP 22; TEMP 37; O2SAT 98
--- NOTE | 2019-04-07 12:10 | ED.GENADUL_ITS ---
Discharge Plan Disposition Patient Disposition: HOME Condition: Stable Discharge Details Chief Complaint: HeadInjury Clinical Impression: Head injury Primary Care Provider: Irena Sesay ED Provider: Irena Mayorga Home Meds and New Rx's Prescriptions: No Action Cardizem LA 120 mg tablet extended release 24 hr 120 mg PO HS RF: 0 hydrochlorothiazide 12.5 mg capsule 12.5 mg PO DAILY RF: 0 pravastatin 40 MG tablet 40 mg PO HS RF: 0 losartan 100 MG tablet 100 mg PO HS RF: 0 Discharge Instructions Instructions: Head Injury (ED) Additional Instructions: Use Tylenol or Motrin for soreness if needed. Rest activities as tolerated. Ice to the back of the head intermittently for swelling. Review information regarding head injuries. Avoid screen use computers, reading or TVs as this may increase her head injury symptoms temporarily. Follow-up promptly with your primary care doctor for reevaluation. Return for any worsening, alarming symptoms or for reevaluation of anything that you feel needs further evaluation as discussed Discharge Data Discharge Date/Time-TO BE ENTERED AT DEPARTURE: 04/07/19 13:25 Medical Decision Making 63-year-old woman not on anticoagulation presents after a trip and fall on ice landing on the posterior scalp and lower back. Patient is concerned with possibility of head injury. Denies loss of consciousness. Patient reports headache, posterior hematoma. No associated laceration. Patient reports dizziness as well as nausea. Nausea is improving. Patient denies any other associated head injury symptoms at this time. Neurologic exam is benign. Patient requesting CT of her head. Declines x-ray of neck or lower back. Declines imaging of right finger or elbow at this time. Offered Tylenol or nausea medication at this time and declines both. Patient CT head reveals EXAM: CT HEAD WO CT HEAD WO CLINICAL HISTORY: fall, posterior head injury. fall, posterior head injury TECHNIQUE: Imaging Protocol: Axial computed tomography images with coronal and sagittal reformatted images were created and reviewed COMPARISON: No exams were available for comparison FINDINGS: The ventricular system is normal in appearance. No evidence of acute intracranial hemorrhage, mass effect, or midline shift. The orbital structures are unremarkable. The temporal bone structures appear intact. Calvarium: Normal. Visualized Paranasal sinuses/Mastoids: Clear. IMPRESSION: Normal cranial CT. Patient is requesting discharge home at this time. Discussed expectations of head injury and concussion, importance of avoiding use of screens, phones, limiting physical activity, resting. Discussed conservative treatment modalities. Encouraged follow-up with PCP promptly. Patient reports her understanding and agrees with plan of care. The patient was stable and requested discharge. Prior to discharge, my usual and customary return precautions were reviewed with the patient - this included follow-up instructions and reasons to return to the Emergency Department if conditions worsens, does not improve as expected, or other new concerns arise. HPI General Date/Time Provider Initiated Documentation: 04/07/19 12:09 . HPI Narrative: This is a 63-year-old patient who presents for concern of head injury. Patient reports she tripped and fell backwards striking her head. Patient reports no obvious loss of consciousness. Patient does report a significant area of swelling in the posterior head. Patient reports immediate nausea and dizziness. Patient reports dizziness persists nausea somewhat improved. No obvious vomiting. Patient denies neck pain does report lower back pain where she struck as well. Patient reports mild right finger injury which she feels is likely sprained as well as left elbow. Patient denies vision change, blurred vision or double vision. Denies tinnitus. Patient denies any other sites of pain or concerns. Injury occurred prior to arrival. Ice currently applied to the posterior head. Related Data Home Medications Medication Instructions Recorded Confirmed losartan 100 mg PO HS tab-cap 07/04/15 04/07/19 pravastatin 40 mg PO HS tab-cap 07/04/15 04/07/19 diltiazem HCl 120 mg 120 mg PO HS 12/15/18 04/07/19 tablet,extended release 24 hr hydrochlorothiazide 12.5 mg capsule 12.5 mg PO DAILY 12/15/18 04/07/19 Allergies Allergy/AdvReac Type Severity Reaction Status Date / Time metoprolol Allergy Severe unknown Verified 04/07/19 11:52 Penicillins Allergy Intermediate Hives Unverified 04/07/19 11:52 amitriptyline AdvReac Severe Visual Unverified 04/07/19 11:52 Disturbances lisinopril AdvReac Mild nausea Unverified 04/07/19 11:52 General Stated Complaint: HeadInjury JOANNE: 3 Review of Systems All systems reviewed & are unremarkable except as noted in HPI and below Constitutional Constitutional: Denies chills, Denies fatigue, Denies fever(s), Reports headache(s), Denies malaise and Denies weakness Eyes Eyes: Denies blind spots, Denies blurry vision and Denies diplopia ENT Ears, Nose, Mouth, and Throat: Reports dizziness, Denies ear discharge, Reports headache(s), Denies nasal obstruction, Denies nasal trauma, Denies sinus pain, Denies sinus pressure and Denies sore throat Cardiovascular Cardiovascular: Denies chest pain and Denies syncope Gastrointestinal Gastrointestinal: Reports nausea and Denies vomiting Musculoskeletal Musculoskeletal: Denies abnormal gait, Denies numbness and Denies tingling Neurologic Neurologic: Denies abnormal movements, Denies abnormal speech, Denies abnormal gait, Denies behavioral changes, Reports dizziness, Denies syncope, Reports headache(s), Denies numbness, Denies tingling, Denies paresthesias and Denies weakness Psychiatric Psychiatric: Denies behavioral changes Endocrine Endocrine: Denies fatigue [facility] Medical History Bradycardia (Acute) Colonic polyp (Acute) Depression (Chronic) Dyspnea on exertion (Acute) Endometrial hyperplasia (Acute) Epigastric pain (Acute) GERD (gastroesophageal reflux disease) (Chronic) Hematemesis (Acute) Hematuria (Acute) Hyperlipidemia (Acute) Hypertension (Chronic) Insomnia (Acute) Left knee pain (Acute) Menopause (Acute) Obesity (Chronic) Pedal edema (Acute) Restless leg syndrome (Acute) Snoring (Acute) Stress incontinence (Acute) Subclinical hypothyroidism (Acute) UTI (urinary tract infection) (Acute) 01/04/2019. Presented to ED 3 days after D&C and hysteroscopy. Cultures pending. Rx with Keflex. Surgical History (Updated 01/12/19 @ 16:59 by Mane Pearl MD) History of D&C (Acute) 01/04/2019 with hysteroscopy. Findings: Atrophic endometrium to lower uterine segment polyps. History of esophagogastroduodenoscopy (EGD) (Resolved 02/22/18) dr vivas, normal Hx of colonoscopy (Chronic) Tubal Ligation, Laparoscopic Social History Smoking/Tobacco Use Status: Never Alcohol Intake: current Alcohol Intake frequency: a few times a month Alcohol type: beer Drug use: Never Substance use type: does not use Do you feel safe at home: Yes Do you feel safe in your relationship?: Yes Exam Narrative Exam Narrative: CONST: no acute distress. Well hydrated. Alert and oriented x3. HENMT: Head nomocephalic, normal to inspection. Atraumatic. Hearing grossly normal. External ear canal no erythema or swelling. TM normal bilaterally. Nose normal to inspection. No rhinnorhea. Normal facial exam. Oral mucosa normal. Tounge normal. Dentition normal. Normal posterior oropharynx. Uvula midline. EYES: General normal appearance. Alignment normal. Eyelids normal. Conjunctiva normal. Sclera normal. PERRL. No nystagmus NECK: Normal visual inspection. FROM. No lymphadenopathy. Trachea midline. No Midline tenderness. CHEST: Normal insepection of the chest. MUSCULOSKELETAL: Normal Gait. FROM of all extremities. Distal neurovascularly intact. Sensation intact distally. Right second digit with proximal phalanx tenderness. No obvious deformity. Full range of motion. Left elbow with mild medial pain with palpation. Supination pronation intact. Full range of motion. Pulses intact distally. SKIN: Normal. Dry. No rashes. Hematoma posterior scalp NEURO: Alert and awake. Speech clear. Alert and oriented x 3. Speech is clear. Cranial nerves intact as tested III - XI. Normal [id number] test. No pronator drift. Normal heel-rubio test. No Nystagmus. Gait normal. Strength intact in all extremities. Sensation intact in all extremities. PSYCH: Normal affect. Cooperative. Course Vital Signs Vital signs: Vital Signs Temperature 37.0 C 04/07/19 11:46 Pulse 70 04/07/19 11:46 Respiratory Rate 22 04/07/19 11:46 Blood Pressure 164/91 H 04/07/19 11:46 Pulse Oximetry 98 04/07/19 11:46 Temperature 37.0 C 04/07/19 11:46 Temperature Source Skin 04/07/19 11:46 Pulse 70 04/07/19 11:46 Respiratory Rate 22 04/07/19 11:46 Respiratory Effort 04/07/19 11:49 Respiratory Depth Normal 04/07/19 11:49 Respiratory Pattern Normal 04/07/19 11:49 Blood Pressure 164/91 H 04/07/19 11:46 Blood Pressure Position Sitting 04/07/19 11:46 Pulse Oximetry 98 04/07/19 11:46 Oxygen Delivery Method Room Air 04/07/19 11:46 Oxygen Flow Rate 0 04/07/19 11:46 Pain Level 9 04/07/19 11:46
--- NOTE | 2019-04-07 12:50 | DI.CT_ITS ---
EXAM: CT HEAD WO CT HEAD WO CLINICAL HISTORY: fall, posterior head injury. fall, posterior head injury TECHNIQUE: Imaging Protocol: Axial computed tomography images with coronal and sagittal reformatted images were created and reviewed COMPARISON: No exams were available for comparison FINDINGS: The ventricular system is normal in appearance. No evidence of acute intracranial hemorrhage, mass effect, or midline shift. The orbital structures are unremarkable. The temporal bone structures appear intact. Calvarium: Normal. Visualized Paranasal sinuses/Mastoids: Clear. IMPRESSION: Normal cranial CT. DATA REPOSITORY: All CT scans at this facility are submitted to the National Radiology Data Registry (NRDR) Dose Index Registry (DIR) with the [employer] (ACR). RADIATION OPTIMIZATION: All CT scans at this facility use at least one of these dose optimization te chniques: automated exposure control; mA and/or kV adjustment per patient size (includes targeted exa ms where dose is matched to clinical indication); or iterative reconstruction.
== END 2019-04-07 13:25 | disposition home or self-care (01) ==
PROVIDERS: Emergency Provider Physician Assistant; PCP Nurse Practitioner Family
DX: S09.90XA Unspecified injury of head, initial encounter (principal); S00.03XA Contusion of scalp, initial encounter; W00.0XXA Fall on same level due to ice and snow, initial encounter; R42 Dizziness and giddiness; R11.0 Nausea; M54.5 Low back pain; M25.522 Pain in left elbow; M79.644 Pain in right finger(s); I10 Essential (primary) hypertension
CPT/HCPCS: 99284; 70450; 99285

== ENCOUNTER 2019-05-18 09:14 | Outpatient (REF) | payer MEDICAID, SELFPAY ==
[2019-05-18 14:13] LABS: Anion Gap 9.2 mmol/L (3-11); BUN 12 mg/dL (7-18); CO2 28.8 mmol/L (21.0-32.0); CREATININE 0.65 mg/dL (0.55-1.02); Calcium 9.1 mg/dL (8.5-10.1); Chloride 101 mmol/L (98-107); Glucose 185 mg/dL (74-106); Potassium 4.2 mmol/L (3.5-5.1); Sodium 139 mmol/L (136-145)
[2019-05-18 15:55] LABS: Hemoglobin A1C 7.9 % (3.8-5.6)
[2019-05-18 15:57] LABS: ALT 32 U/L (14-59); AST 23 U/L (15-37)
[2019-05-18 16:09] LABS: Calculated LDL 127 mg/dL (<100); Cholesterol 190 mg/dL (<200); HDL Cholesterol 37 mg/dL (40-60); Triglyceride 133 mg/dL (<150)
== END 2019-05-18 09:34 ==
LOC: NCHCN 09:14
PROVIDERS: PCP Nurse Practitioner Family; Visit Provider Nurse Practitioner Family
DX: E78.5 Hyperlipidemia, unspecified (principal); E66.9 Obesity, unspecified; I10 Essential (primary) hypertension
CPT/HCPCS: 80048; 80061; 83036; 84450; 84460

== ENCOUNTER 2019-05-25 02:06 | Outpatient (CLI) | payer MEDICAID, SELFPAY ==
--- NOTE | 2019-05-25 09:00 | DI.US_ITS ---
EXAM: MG MAMMO DIAGNOSTIC BI AND US BREAST LT LIMITED CLINICAL HISTORY: BREAST ABNORMAL FINDINGS N64.59, PALPABLE AREA OF FIRMNESS BELOW LT NIPPLE. COMPARISON: Priors available for comparison. TECHNIQUE: Craniocaudal and mediolateral oblique Full Field Digital Mammography views of the bilater al breast with Computer Aided Diagnosis followed by Tomosynthesis and left breast ultrasound. FINDINGS: Mammography/Tomosynthesis: Masses/Architectural Distortion: None seen. Microcalcifictions: No suspicious pleomorphic-type are seen. Skin Thickening/Nipple Retraction: None. Left breast US: Echotexture: Normal appearance of the glandular tissue. Shadowing: No suspicious foci. Cyst: None. Solid lesions: None seen. Ductal dilation: None. IMPRESSION: 1. No evidence of malignancy is noted. 2. Unless there is more urgent need, follow-up screening mammography is recommended, as per [place] [employer] guidelines. ACR BI-RAD Category- 1 Negative Breast Density - Category B - Scattered areas of fibroglandular density Findings were discussed with the patient on the date of the examination. A negative radiographic report should not delay biopsy if a dominant or clinically suspicious mass is present. Up to ten percent of cancers are not identified on mammography. A negative report may reinforce clinical impression. Adenosis and dense breasts may obscure an underlying neoplasm. False positive reports average 6 to 10%. Patient will receive a letter notifying them of these results.
== END 2019-05-25 02:26 ==
PROVIDERS: PCP Nurse Practitioner Family; Visit Provider Nurse Practitioner Family
DX: N64.4 Mastodynia (principal); N63.20 Unspecified lump in the left breast, unspecified quadrant; N64.59 Other signs and symptoms in breast
CPT/HCPCS: 76642; 77062; 77066; G0279

== ENCOUNTER 2020-02-06 15:52 | Outpatient (REF) | payer MEDICAID, SELFPAY ==
[2020-02-06 21:47] LABS: Bilirubin Negative (Negative); Blood Trace-lysed (Negative); Clarity Turbid (Clear); Glucose Negative (Negative); Ketones Negative (Negative); Leukocyte Esterase Negative (Negative); Nitrite Negative (Negative); Specific Gravity >= 1.030 (1.005-1.025); Urobilinogen 0.2 EU/dL (Up TO 0.2)
[2020-02-06 22:36] LABS: Bacteria Negative HPF (Negative); C & S Indicated? No; Casts Negative LPF (Negative); Crystals Moderate Amorphous HPF (Negative); Epithelial Cells Few HPF (Negative); Mucus Negative (Negative); RBC 0-2 HPF (0-2); WBC 0-2 HPF (0-5)
== END 2020-02-06 16:12 ==
LOC: NCHCN 15:52
PROVIDERS: PCP Nurse Practitioner Family; Visit Provider Nurse Practitioner Family
DX: R31.9 Hematuria, unspecified (principal)
CPT/HCPCS: 81003; 81015

== ENCOUNTER 2020-02-27 09:22 | Outpatient (REF) | payer MEDICAID, SELFPAY ==
[2020-03-01 10:18] LABS: SARS-CoV-2 RNA Source Nasal/Nares
[2020-03-01 10:19] LABS: SARS-CoV-2 RNA Not Detected (NotDetected)
== END 2020-02-27 09:42 ==
LOC: NCHCN 09:22
PROVIDERS: PCP Nurse Practitioner Family; Visit Provider Nurse Practitioner Family
DX: Z20.828 Contact with and (suspected) exposure to other viral communicable diseases (principal)
CPT/HCPCS: U0003

== ENCOUNTER 2020-05-23 11:53 | Emergency (ER) | payer MEDICAID, SELFPAY ==
[2020-05-23] VITALS (57 sets, daily range): BP systolic 95–196; BP diastolic 64–175; PULSE 46–95; RESP 12–30; TEMP 36.8; O2SAT 96–100
--- NOTE | 2020-05-23 11:30 | RT.EKG_ITS ---
APPROVED REPORT Exam: Resting ECG Patient Location: E HR:56 bpm ECG Measurements Heart Rate 56 AXIS DE 159 P 19 QRSd 92 QRS 9 QT 439 T 62 QTc 425 Conclusion Sinus bradycardia Rate 56, no st elev
--- NOTE | 2020-05-23 11:44 | W.ED.GENAD ---
Discharge Plan Disposition Patient Disposition: HOME Condition: Stable Discharge Details Clinical Impression: Chest pain Primary Care Provider: Jessica Wilson ED Provider: Ry Velasco Home Meds and New Rx's Prescriptions: Continued Cardizem LA 120 mg tablet extended release 24 hr 120 mg PO DAILY RF: 0 pravastatin 40 MG tablet 40 mg PO HS RF: 0 losartan 100 MG tablet 100 mg PO DAILY RF: 0 sertraline 100 mg Tablet 25 mg PO DAILY RF: 0 melatonin 5 mg Tablet 5 mg PO HS PRN (Reason: Sleep) RF: 0 Discharge Instructions Instructions: Chest Pain (ED) Additional Instructions: At this time you have remained asymptomatic while under my care. Your work-up here in the ER including a rapid cardiac rule out was unremarkable. I have offered you observation admission for serial troponins, observation, and hopefully to expedite a cardiac work-up however you have declined. Given you are asymptomatic and your work-up is unremarkable I believe this to be reasonable but I have reached out to Jessica Wilson NP to make her aware of your ER visit and hopefully expedite your outpatient care. She is aware of your visit and says that she will be in touch with you in the next 24 hours. Please watch for new or worsening symptoms and return to the ER for any concerns. Discharge Data Discharge Date/Time-TO BE ENTERED AT DEPARTURE: 05/23/20 17:16 Medical Decision Making This is a 64-year-old female, denies significant cardiac history. Presents via EMS after developing substernal chest pain-burning, tingling in her right arm. Given a single nitro and aspirin, upon presentation is asymptomatic. She is hypertensive at 193/69. Reports that she took all of her nightly medications last night as directed. Does not take any hypertensive medications in the morning. Patient makes it very clear that she does not want to be admitted and would like to be discharged at some point. Given her age, comorbidities, ACS is certainly on the differential as well as PE, pneumonia, CHF, pleural effusion, GERD, gastritis, etc. Will initiate cardiac work-up and include a D-dimer. Patient remains asymptomatic, blood pressure trending downward nicely without any intervention. Initial laboratory values are unremarkable for any obvious emergent process. INR 1.0, D-dimer 480. Normal WBC. Electrolytes unremarkable. Glucose 149. GFR greater than 60 with a creatinine of 0.7. Troponin less than 0.05. BNP 152. Chest x-ray negative per radiology. I discussed the initial work-up with the patient. Blood pressure continues to trend downward, she remains asymptomatic. We discussed that given her age, comorbidities, admission to our facility for serial troponins and to help expedite a cardiac work-up would be completely reasonable. She once again declines. Depending on how one would subjectively rate her presentation, moderate or high suspicion, she would either score a 3 or a 4. She is agreeable to awaiting a repeat troponin and EKG at the 3-hour timeframe but does not want to be admitted. Given my concern regarding the patient's overall presentation, I reached out to her primary care provider Jessica Wilson NP. I made her aware of the patient's presentation today and her desire to be discharged. Patient is agreeable to awaiting a 3-hour troponin and EKG but then would like to be discharged. Appendectomy is aware of the patient presentation to the ER today and will reach out to the patient to follow-up and to help expedite outpatient cardiac work-up. Patient remains hemodynamically stable under my care. She remains asymptomatic. Repeat troponin remains less than 0.05. Repeat EKG at 1624, please see official report by Dr. Bass. Sinus bradycardia, ventricular rate of 53. No STEMI. No dynamic changes when compared to initial EKG. Discussed results with patient. She continues to request to be discharged home. I did make her aware that I reached out to her primary care provider to close the loop of her evaluation to help expedite outpatient care. Medical Records Medical records reviewed: Yes I reviewed the patient's medical records. Imaging Data Radiologic Study: Attestation: I personally reviewed and interpreted this imaging study as follows: Imaging: X-Ray Radiologist's impression: Chest x-ray negative per radiology ECG Data Attestation: I personally reviewed and interpreted this ECG (s) as follows: Interpretation: Please see official report by Dr. Bass. Sinus bradycardia, rate of 56. No STEMI. He was able to compare to the EKG performed at the office when her symptoms began earlier today, no dynamic changes HPI General Mode of arrival: EMS. Date/Time Provider Initiated Documentation: 05/23/20 12:19. Limitations to Documentation: no limitations. Information obtained by: patient and EMS. HPI Narrative: This is a 64-year-old female with past medical history of bradycardia, depression, dyspnea on exertion, epigastric pain, GERD, hyperlipidemia, hypertension, obesity, presenting to the ER today for chest pain and shortness of breath. She states that approximately 6 months ago she was diagnosed with borderline diabetes, focusing on her diet, not medicated. She lost 18 pounds but then has subsequently gained the weight back. Today while at work, resting, she developed what she describes as substernal chest pain, burning, the pain did not radiate but she had tingling in her right arm. She has noticed increasing dyspnea with exertion over the past several weeks worse than her baseline. She was given a single nitro, and full dose aspirin. She reports that at the worst, her pain was a 7 out of 10 but is now resolved completely. She is completely asymptomatic and requesting to go home. She denies recent illness or trauma. She denies any headache, current chest pain, shortness of breath, fever, neck pain abdominal pain, nausea vomiting, back pain, bowel or bladder symptoms, pain or swelling in her legs. Related Data Home Medications Medication Instructions Recorded Confirmed losartan 100 mg PO DAILY tab-cap 07/04/15 05/23/20 pravastatin 40 mg PO HS tab-cap 07/04/15 05/23/20 diltiazem HCl 120 mg 120 mg PO DAILY 12/15/18 05/23/20 tablet,extended release 24 hr melatonin 5 mg PO HS PRN 05/23/20 05/23/20 sertraline 25 mg PO DAILY 05/23/20 05/23/20 Allergies Allergy/AdvReac Type Severity Reaction Status Date / Time metoprolol Allergy Severe unknown Verified 05/14/20 10:49 Penicillins Allergy Intermediate Hives Verified 05/14/20 10:49 hydrochlorothiazide Allergy Mild Unverified 05/23/20 12:06 amitriptyline AdvReac Severe Visual Verified 05/14/20 10:49 Disturbances lisinopril AdvReac Mild nausea Verified 05/14/20 10:49 General JOANNE: 3 Review of Systems Constitutional Constitutional: Denies fatigue, Denies fever(s), Denies headache(s) and Denies weakness ENT Ears, Nose, Mouth, and Throat: Denies headache(s) and Denies neck pain Cardiovascular Cardiovascular: Reports chest pain, Reports dyspnea and Reports dyspnea on exertion Respiratory Respiratory: Denies cough, Reports dyspnea and Reports dyspnea on exertion Gastrointestinal Gastrointestinal: Denies abdominal pain, Denies nausea and Denies vomiting Genitourinary Genitourinary: Denies dysuria Musculoskeletal Musculoskeletal: Denies neck pain, Denies numbness and Denies tingling Integumentary/Breasts Skin/Breast: Denies rash Neurologic Neurologic: Denies headache(s), Denies numbness, Denies tingling and Denies weakness Endocrine Endocrine: Denies fatigue [facility] Medical History (Updated 05/23/20 @ 16:29 by OZIEL Beavers) Bradycardia Colonic polyp Depression Dyspnea on exertion Endometrial hyperplasia Epigastric pain GERD (gastroesophageal reflux disease) Hematemesis Hematuria Hyperlipidemia Hypertension Insomnia Left knee pain Menopause Obesity Pedal edema Restless leg syndrome Snoring Stress incontinence Subclinical hypothyroidism UTI (urinary tract infection) 01/04/2019. Presented to ED 3 days after D&C and hysteroscopy. Cultures pending. Rx with Keflex. Surgical History History of D&C 01/04/2019 with hysteroscopy. Findings: Atrophic endometrium to lower uterine segment polyps. History of esophagogastroduodenoscopy (EGD) (02/22/18) dr vivas, normal Hx of colonoscopy Tubal Ligation, Laparoscopic Family History Maternal Uncle Colon cancer Maternal Aunt Colon cancer Social History Smoking/Tobacco Use Status: Never Smoking risk assessment performed?: Yes Alcohol Intake: former Drug use: Never Substance use type: does not use Do you feel safe at home: Yes Do you feel safe in your relationship?: Yes Exam Const General: cooperative, healthy appearing, comfortable and no acute distress Orientation: alert, awake and oriented x3 HENMT Head: normal to inspection, normocephalic and atraumatic Face and sinus: normal facial exam Mouth: moist mucous membranes Eyes General: appearance normal, both eyes and all related structures Conjunctivae: conjunctivae normal Sclera: sclerae normal Neck Neck: normal visual inspection, full ROM, no meningeal signs, trachea midline and supple Resp Effort & Inspection: normal respiratory effort and able to speak in complete sentences Auscultation: clear to auscultation bilaterally Cardio Rate: regular rate Rhythm: regular rhythm GI Inspection: normal to inspection Palpation: soft, not firm, no guarding, no pulsatile masses and nontender Back/Spine/Pelvis Back: No back tenderness Skin General skin exam: no rashes or lesions noted Neuro General: patient alert, patient awake, moves all extremities and no focal motor deficits Cognition: normal cognition Speech: speech normal Gait: normal gait Motor: muscle tone normal throughout Sensory Exam: no sensory deficits noted Extrem General: normal to inspection, full ROM, capillary refill normal, no pedal edema and no calf tenderness Psych Appearance: grossly normal Mental Status: mental status grossly normal
[2020-05-23 12:30] LABS: Abs Immature Grans 0.01 10^3/uL (0.0-0.06); Absolute Basophil Count 0.03 10^3/uL (0.0-0.2); Absolute Eosinophil Count 0.29 10^3/uL (0.0-0.7); Absolute Lymphocyte Count 2.75 10^3/uL (1.2-3.4); Absolute Monocyte Count 0.45 10^3/uL (0.1-0.8); Absolute Neutrophil Count 3.67 10^3/uL (1.2-6.7); Basophils % 0.4; HCT 38.2 % (36.0-46.0); HGB 13.4 g/dL (11.2-15.7); Immature Grans % 0.1; Lymphocytes % 38.2; MCH 29.6 pg (27.0-33.0); MCHC 35.1 % (32.0-36.0); MCV 84.3 fL (80-95); MPV 11.1 fL (8.0-11.0); Monocytes % 6.3; Nucleated RBC 0 %; Platelet Count 250 10^3/uL (130-400); RBC 4.53 10^6/uL (3.93-5.22); RDW 12.4 % (11.7-14.6)
[2020-05-23 12:44] LABS: PTT Activated 25.1 sec (21.0-27.5)
[2020-05-23 13:00] LABS: ALT 22 U/L (14-59); AST 14 U/L (15-37); Albumin 3.6 g/dL (3.4-5.0); Alkaline Phosphatase 108 U/L (46-116); Anion Gap 9.9 mmol/L (3-11); BUN 11 mg/dL (7-18); Bilirubin, Total 0.6 mg/dL (0.2-1.0); CO2 27.1 mmol/L (21.0-32.0); CREATININE 0.7 mg/dL (0.55-1.02); Calcium 8.8 mg/dL (8.5-10.1); Chloride 106 mmol/L (98-107); Glucose 149 mg/dL (74-106); Magnesium 1.9 mg/dL (1.8-2.4); NT-proBNP 152 pg/mL (<300); Potassium 3.6 mmol/L (3.5-5.1); Sodium 143 mmol/L (136-145); Total Protein 7.1 g/dL (6.4-8.2)
[2020-05-23 13:03] LABS: Troponin I < 0.05 ng/mL (<0.06)
[2020-05-23 13:04] LABS: D-Dimer 480 ng/mlFEU (<500)
--- NOTE | 2020-05-23 13:29 | DI.RAD_ITS ---
EXAM: XR CHEST 2V PA LATERAL CLINICAL HISTORY: Pain, dyspnea with exertion, diaphoresis TECHNIQUE: 2D digital imaging was performed. COMPARISON: CR CHEST 2 VIEWS PA,LAT from 06/24/2011 FINDINGS: MEDIASTINUM: Normal. HEART: Normal. PULMONARY VASCULATURE: Normal. LUNGS: Clear. PLEURAL SPACE: No pleural effusion or pneumothorax. BONE:Degenerative changes in the spine.. OTHER FINDINGS:Normal. IMPRESSION: No acute pulmonary findings. DATA REPOSITORY: RADIATION DOSE DELIVERED:
[2020-05-23] MEDS: Normal Saline 1,000 ML 125 ML IV (13:38)
--- NOTE | 2020-05-23 15:30 | RT.EKG_ITS ---
APPROVED REPORT Exam: Resting ECG Patient Location: E HR:53 bpm ECG Measurements Heart Rate 53 AXIS MS 158 P 10 QRSd 91 QRS 5 QT 471 T 51 QTc 443 Conclusion Sinus bradycardia. No st elevation
[2020-05-23 16:05] LABS: Troponin I < 0.05 ng/mL (<0.06)
== END 2020-05-23 17:16 | disposition home or self-care (01) ==
PROVIDERS: Emergency Provider Physician Assistant; PCP Nurse Practitioner Family
DX: R07.89 Other chest pain (principal); I10 Essential (primary) hypertension
CPT/HCPCS: 36415; 80053; 93005; 96360; 96361; 99285; 71046; 83735; 83880; 84484; 85025; 85379; 85610; 85730; 93010

== ENCOUNTER 2020-05-30 00:46 | Outpatient (CLI) | payer MEDICAID, SELFPAY ==
--- NOTE | 2020-05-30 11:45 | DI.NM_ITS ---
APPROVED REPORT Exam: Exercise Treadmill Patient Location: Out-Patient Room/Bed: Stress Nurse: Em Arauz RN Ordering Provider:NITESH MILLS, Contact Number: [phone] BMI: 34.74 Baseline Rhythm: Sinus arrhythmia Indications: Chest pain Medical History Medical History: Hypertension, hyperlipidemia, diabetes, MINDY Cardiac Medications: losartan, pravastin Allergies: PNC, metoprolol, HCTZ, lisinopril, amitriptyline Cardiac Risk Factors: Hypertension, hyperlipidemia, diabetes, MINDY, family hx Previous Cardiac Procedures: None Pretest Chest Pain Characteristics: None Exercise History: Sedentary Physical Disabilities: None Lung Sounds: Clear to auscultation Heart Sounds: Regular Stress Test Details Test: Exercise stress testing was performed using a Joseph protocol. Nuclear Acquisition: Rest Tc-99m/Stress Tc-99m 1 day Rest Isotope: Tc-99m Sestamibi. Dose: 11.4 Date: 05/30/2020 Injection Time: 1215 Stress Isotope: Tc-99m Sestamibi. Dose: 36.0 Date: 05/30/2020 Injection Time: 1422 HR Resting HR Supine: 62 bpm Max Heart Rate (APMHR): 157 bpm Resting HR Standin bpm Target HR (85% APMHR): 133 bpm Max HR Achieved: 164 bpm % of APMHR: 104 Recovery HR: 87 bpm HR response to stress: Normal HR response to stress BP Resting BP Supine: 160/98 mmHg Resting BP Standin/100 mmHg Max BP: 200/74 mmHg Recovery BP: 178/82 mmHg BP response to stress: Normal blood pressure response to stress. ECG Resting ECG: Sinus arrhythmia Ectopy: None Stress ECG: Sinus Tachycardia ST Change: Horizontal ST depression Lead(s): II, V5, V6 Stage: I Maximum ST Deviation: 1 mm Arrhythmia: Occasional PVC Recovery ECG: Sinus Rhythm Recovery ST Change: No significant ST segment changes noted Recovery Arrhythmia: Occasional PVC Clinical Reason for Termination: Dyspnea, Fatigue Stress Symptoms: Dyspnea, General Fatigue Exercise duration: 5 min28 sec Highest Stage Reached: Stage 2: 2.5 mph at 12% grade. Exercise capacity: 7.05 METs Dutton Treadmill Score: 0 Rate Pressure Product: 15501 Stress ECG Conclusion 1. Patient exercised for 5 minutes (7 METS). 2. Patient no symptoms suggestive of ischemia. 3. There were [address] depressions in the lateral leads during peak exertion. These normal ized within about 1 minute of recovery. Dutton Treadmill Score is 0 which is Moderate risk. Stress Test Summary STAGE Time (mins) Speed (mph) Grade (%) HR BP SYMPTOMS METS Supine 62 160/98 Standing 61 154/100 1 3 1.7 10 130 4.6 2 6 2.5 12 160 7 1 min recovery 130 200/74 3 min recovery 96 178/82 6 min recovery 87 162/88 MPI Conclusion The patient's ejection fraction was 79% with stress. There were no wall motion abnormalities. There is no evidence of ischemia on the imaging portion of the exam. The stress test was abnormal from an ECG standpoint but with normal imaging it is likely represent a normal SPECT stress test.
== END 2020-05-30 00:47 ==
LOC: DI 00:46
PROVIDERS: PCP Nurse Practitioner Family; Visit Provider Nurse Practitioner Family
DX: R07.9 Chest pain, unspecified (principal); I10 Essential (primary) hypertension; E78.5 Hyperlipidemia, unspecified; E11.9 Type 2 diabetes mellitus without complications
CPT/HCPCS: 78452; 93017

== ENCOUNTER 2020-05-31 00:45 | Outpatient (CLI) | payer MEDICAID, SELFPAY ==
--- NOTE | 2020-05-31 13:49 | DI.MAMMO_ITS ---
EXAM: MAMMO SCREENING CLINICAL HISTORY: SCREENING, Z12.31 TECHNIQUE: Mammograms were interpreted according to the usual protocol including computer analysis w [employer] CAD system, tomosynthesis and C-view imaging. COMPARISON: 2014 through 2019 FINDINGS: The breasts are composed of scattered fibroglandular densities, Breast Density category B. No suspicious masses or suspicious microcalcifications are seen. No skin thickening or abnormal axillary lymph nodes are seen. There has been no significant change from prior exams. IMPRESSION: BI-RADS Category 1, Negative mammogram Yearly screening mammography is recommended. Breast Density - Category B, scattered fibroglandular densities. A negative radiographic report should not delay biopsy if a dominant or clinically suspicious mass is present. Up to ten percent of cancers are not identified on mammography. A negative report may reinforce clinical impression. Adenosis and dense breasts may obscure an underlying neoplasm. False positive reports average 6 to 10%. Patient will receive a letter notifying them of these results.
== END 2020-05-31 00:46 ==
LOC: DI 00:45
PROVIDERS: PCP Nurse Practitioner Family; Visit Provider Nurse Practitioner Family
DX: Z12.31 Encounter for screening mammogram for malignant neoplasm of breast (principal)
CPT/HCPCS: 77063; 77067

== ENCOUNTER 2020-06-07 12:47 | Outpatient (REF) | payer MEDICAID, SELFPAY ==
[2020-06-07 21:35] LABS: Anion Gap 10.1 mmol/L (3-11); BUN 13 mg/dL (7-18); CO2 25.9 mmol/L (21.0-32.0); CREATININE 0.7 mg/dL (0.55-1.02); Calcium 8.7 mg/dL (8.5-10.1); Chloride 104 mmol/L (98-107); Glucose 180 mg/dL (74-106); Potassium 3.7 mmol/L (3.5-5.1); Sodium 140 mmol/L (136-145); TSH 3.14 uIU/mL (0.36-3.74)
== END 2020-06-07 12:48 | disposition home or self-care (01) ==
LOC: NCHCN 12:47
PROVIDERS: PCP Nurse Practitioner Family; Visit Provider Nurse Practitioner Family
DX: E11.9 Type 2 diabetes mellitus without complications (principal); E03.9 Hypothyroidism, unspecified; I10 Essential (primary) hypertension
CPT/HCPCS: 80048; 84443

== ENCOUNTER 2020-06-19 02:14 | Outpatient (CLI) | payer MEDICAID, SELFPAY ==
--- NOTE | 2020-06-19 07:25 | DI.US_ITS ---
APPROVED REPORT EXAM: Comprehensive 2D, Doppler, and color-flow Echocardiogram Patient Location: Out-Patient Tyre Fitter: Vanessa Brooks RDCS (AE) Indications: Chest pain Other Information Study Quality: Fair. Technically limited study due to body habitus. Conclusion Left Ventricle : The left ventricle is normal size. The left ventricular systolic function is normal. The left ventricular ejection fraction is within the normal range. There is normal left ventricular wall thickness. There is normal LV segmental wall motion. The left ventricular diastolic function is normal. LVEF is 55%. Right Ventricle : The right ventricle is normal size. The right ventricular systolic function is norm al. The RVSP is 28.9 mmHg. Atria : The left atrium size is normal. The right atrium size is normal. Valves: There are no hemodynamically significant valvular lesions. Great Vessels : The aortic root is normal in size. The ascending aorta is mildly dilated. IVC is norm al in size and collapses >50% with inspiration. Wall motion Left Ventricle The left ventricle is normal size. The left ventricular systolic function is normal. The left ventric ular ejection fraction is within the normal range. There is normal left ventricular wall thickness. T here is normal LV segmental wall motion. The left ventricular diastolic function is normal. There is no ventricular septal defect visualized. LVEF is 55%. Right Ventricle The right ventricle is normal size. The right ventricular systolic function is normal. The RVSP is 28 .9 mmHg. Atria The left atrium size is normal. The right atrium size is normal. The interatrial septum is intact wit h no evidence for an atrial septal defect. Aortic Valve The aortic valve is normal in structure. Aortic valve is probably trileaflet. There is no aortic valv ular stenosis. No aortic regurgitation is present. Mitral Valve Mild mitral annular calcification. No evidence of mitral valve stenosis. Trace mitral regurgitation. Tricuspid Valve The tricuspid valve is normal in structure. There is no tricuspid valve stenosis. Trace tricuspid reg urgitation. Pulmonic Valve The pulmonary valve is normal in structure. There is no pulmonic valvular stenosis. There is no pulmo lane valvular regurgitation. Great Vessels The aortic root is normal in size. The ascending aorta is mildly dilated. IVC is normal in size and c ollapses >50% with inspiration. Pericardium There is no pericardial effusion. 2D Dimensions IVSD d PLAX 0.97 cm F: 0.6-1.0 LV Vol A2C d MOD 71.5 mL LVPW d PLAX 0.97 cm F: 0.6 - 1.0 LV Vol A4C d MOD 87.1 mL LVID d PLAX 4.51 cm F: 3.8 - 5.2 LA vol/ BSA A2C s A-L 22.8 mL/m2 LVDs 3.20 cm F: 2.2 - 3.5 LA vol/ BSA A4C s A-L 23.9 mL/m2 Ao Root d 2.92 cm F: 2.7 - 3.3 LA Vol/ BSA Biplane s A-L 24.3 mL/m2 RA Area A4C 16.03 cm2 LA Area A4C s MOD 17.12 cm2 RA Vol/ BSA A4C s A-L 24.6 mL/m2 LA Area A2C s MOD 16.03 cm2 Ao Asc Diam d 3.29 cm F: 2.3 - 3.1 LV EF A4C MOD 56.3 % LV EF Teichholz 55.4 % LV EF A2C MOD 55.2 % LVEF (Montero's) 52.93 % F: 54 - 74 LV EF Biplane MOD 52.9 % LV Volume 60.97 mL F: 46 - 106 SV 41.93 mL LV Volume Index 32.95 mL/m2 F: 29 - 61 SV Index 22.62 mL/m2 LV Vol Biplane MOD 79.2 mL FS 28.65 % M-Mode TAPSE 2.51 cm (M/F) >1.7 LV Diastology MV E' medial 0.116 (>0.07 m/s) E/A Ratio 1.8 LV E/e MED 9.85 (<14) MV E Vmax 1.15 (0.4-1.3 m/s) MV E' lateral 0.100 (>0.1 m/s) MV A Vmax 0.65 (0.4-1.3 m/s) LV E/e LAT 11.50 (<14) MV E/A Ratio 1.76 MV E/E' medial 9.88 MV E/E' lateral 11.53 Aortic Valve LVOT Area 3.44 cm2 AoV Area Vmax 2.00 cm2 LVOT Vmax 0.73 m/s AoV Area/ BSA (Vmax) 1.08 cm2/m2 LVOT Mean Ricky. 0.49 m/s GENO Mean Ricky. 1.89 cm2 LVOT Peak Grad 2.1 mmHg GENO Mean Ricky. Index 1.02 cm2/m2 LVOT Mean Grad 1.2 mmHg LVOT VTI 0.153 m LVOT Diam s 2.05 cm AoV Vmax 1.25 m/s Velocity Ratio 0.58 AoV Mean Ricky. 0.90 m/s AoV Peak Grad 6.3 mmHg LVOT SV 52.64 mL AoV Mean Grad 3.5 mmHg AoV VTI 0.319 m AoV Area VTI 1.65 cm2 AoV Area/ BSA (VTI) 0.89 cm/m2 Mitral Valve MV DT 174 (160-240 msec) MV PHT 50 msec MV Area PHT 4.36 cm2 Pulmonary Valve PV Vmax 0.96 (0.5-1.5 m/s) RVOT Peak Gr. 2.89 mmHg PV Peak Grad 3.7 mmHg RVOT Mean Gr. 1.35 mmHg PV Mean Grad 1.8 mmHg RVOT VTI 0.164 m PV VTI 0.201 m RVOT Vmax 0.85 m/s Tricuspid Valve TR Peak Grad 25.8 mmHg TR Vmax 2.54 m/s RA Pressure 3.00 mmHg RVSP (TR) 28.9 mmHg
== END 2020-06-19 02:34 ==
PROVIDERS: PCP Nurse Practitioner Family; Visit Provider Nurse Practitioner Family
DX: R07.9 Chest pain, unspecified (principal); I77.810 Thoracic aortic ectasia
CPT/HCPCS: 93306

== ENCOUNTER 2020-06-28 11:35 | Outpatient (REF) | payer MEDICAID, SELFPAY ==
[2020-06-28 14:09] LABS: Anion Gap 9.8 mmol/L (3-11); BUN 17 mg/dL (7-18); CO2 29.2 mmol/L (21.0-32.0); CREATININE 0.7 mg/dL (0.55-1.02); Calcium 9.4 mg/dL (8.5-10.1); Chloride 104 mmol/L (98-107); Glucose 153 mg/dL (74-106); Potassium 4.1 mmol/L (3.5-5.1); Sodium 143 mmol/L (136-145)
== END 2020-06-28 11:36 | disposition home or self-care (01) ==
LOC: NCHCN 11:35
PROVIDERS: PCP Nurse Practitioner Family; Visit Provider Nurse Practitioner Family
DX: I10 Essential (primary) hypertension (principal)
CPT/HCPCS: 80048

== ENCOUNTER 2021-02-20 15:04 | Outpatient (REF) | payer MEDICAID, SELFPAY ==
--- OUTSIDE RECORDS SUMMARY | 2021-02-20 15:07 | XMS_ITS ---
:1955 Author Care Team Providers Name Role Phone [facility] Primary Care Provider [phone] [facility] [employer]AT[facility] OTHER [phone] NITESH MILLS Primary Care Provider [phone] Allergies Code Code System Name Reaction Severity Status Onset 704 RxNorm Amitriptyline ? ? Active ? 84760 RxNorm Lisinopril ? ? Active ? 6918 RxNorm Metoprolol ? ? Active ? Penicillins ? ? Active ? Medications Name Status Start Date Stop Date ? ? diltiazem CD 240 mg capsule,extended release 24 hr Active ? Not available Take 1 capsule every day by oral route. Diltiazem HCl Coated Beads Completed ? 06/13 120mg daily hydrochlorothiazide 12.5 mg tablet Completed ? 06/13/2020 Take 1 tablet every day by oral route. losartan 100 mg tablet Active ? Not avail able Take 1 tablet every day by oral route. pantoprazole 40 mg tablet,delayed release Completed ? 11/30/2018 Take 1 tablet twice a day by oral route. pravastatin 40 mg tablet Active ? Not stephenie ilable Take 1 tablet every day by oral route. zolpidem 5 mg tablet Completed ? 01/30/2019 FOR NIGHT OF SLEEP STUDY: take 1 tablet as needed for insomnia after set up. may repeat 1 hour later if not effective. Problems Name Status Onset Date Source ? Subclinical Hypothyroidism Active 11/21/2018 ? Hyperlipidemia Active 11/21/2018 ? Obesity Active 11/21/2018 ? Depressive Disorder Active 11/21/2018 ? Insomnia Active 11/21/2018 ? Restless Legs Active 11/21/2018 ? Bradycardia Active 11/21/2018 ? Gastroesophageal Reflux Disease Active 11/21/2018 ? Blood in Urine Active 11/21/2018 ? Endometrial Disorder Active 11/21/2018 ? Genuine Stress Incontinence Active 11/21/2018 ? Postmenopausal Bleeding Active 11/21/2018 ? Edema of Foot Active 11/21/2018 ? Snoring Active 11/21/2018 ? Knee Pain Active 11/21/2018 ? Menopause Active 11/21/2018 ? Hypertensive Disorder Active 11/30/2018 ? Obstructive Sleep Apnea Syndrome Active ? ? Procedures None recorded. Results Lab Results None recorded. 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 Social History Tobacco Smoking Status Never Smoker Vaccine List None recorded. Plan of Care Reminders Provider Appointments None ? ? recorded. Lab None ? ? recorded. Referral None ? ? recorded. Procedures None ? ? recorded. Surgeries None ? ? recorded. Imaging None ? ? recorded. Vitals 06/13/2020 04:00PM Office 30 Height Weight BMI Blood Pressure 157.48 cm 84.37 kg 34 kg/m2 163/55 mm[Hg] 03/20/2019 01:15PM Office 30 Height Weight BMI Blood Pressure 157.48 cm 89.13 kg 35.9 kg/m2 130/82 mm[Hg] 01/30/2019 11:30AM Office 30 Height Weight BMI Blood Pressure 157.48 cm 88.9 kg 35.8 kg/m2 130/72 mm[Hg] 12/29/2018 03:00PM Office 30 Height Weight BMI Blood Pressure 157.48 cm 88.59 kg 35.7 kg/m2 130/80 mm[Hg] 11/30/2018 08:30AM New Patient 45 Height Weight BMI Blood Pressure 157.48 cm 87.54 kg 35.3 kg/m2 105/62 mm[Hg]
[2021-02-20 22:19] LABS: Abs Immature Grans 0.02 10^3/uL (0.0-0.06); Absolute Basophil Count 0.02 10^3/uL (0.0-0.2); Absolute Eosinophil Count 0.29 10^3/uL (0.0-0.7); Absolute Lymphocyte Count 2.62 10^3/uL (1.2-3.4); Absolute Neutrophil Count 4.25 10^3/uL (1.2-6.7); Basophils % 0.3; Eosinophils % 3.8; HCT 38.5 % (36.0-46.0); HGB 13.2 g/dL (11.2-15.7); Immature Grans % 0.3; Lymphocytes % 34.5; MCH 30.2 pg (27.0-33.0); MCHC 34.3 % (32.0-36.0); MCV 88.1 fL (80-95); MPV 11.9 fL (8.0-11.0); Monocytes % 5.3; Neutrophils % 55.8; Nucleated RBC 0 %; Platelet Count 242 10^3/uL (130-400); RBC 4.37 10^6/uL (3.93-5.22); RDW 12.4 % (11.7-14.6); RDW-SD 40.6 fL
[2021-02-21 06:34] LABS: Anion Gap 8.9 mmol/L (3-11); BUN 14 mg/dL (7-18); CO2 27.1 mmol/L (21.0-32.0); CREATININE 0.8 mg/dL (0.55-1.02); Chloride 107 mmol/L (98-107); Glucose 141 mg/dL (74-106); Potassium 3.9 mmol/L (3.5-5.1); Sodium 143 mmol/L (136-145)
== END 2021-02-20 15:05 | disposition home or self-care (01) ==
LOC: NCHCN 15:04
PROVIDERS: PCP Nurse Practitioner Family; Visit Provider Nurse Practitioner Family
DX: R10.32 Left lower quadrant pain (principal)
CPT/HCPCS: 80048; 85025

== ENCOUNTER 2021-02-21 01:14 | Outpatient (CLI) | payer MEDICAID, SELFPAY ==
--- OUTSIDE RECORDS SUMMARY | 2021-02-21 01:15 | XMS_ITS ---
:1955 Author Care Team Providers Name Role Phone [facility] Primary Care Provider [phone] [facility] OTHER [phone] NITESH MILLS Primary Care Provider [phone] Allergies Code Code System Name Reaction Severity Status Onset 704 RxNorm Amitriptyline ? ? Active ? 09751 RxNorm Lisinopril ? ? Active ? 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 Social History Tobacco Smoking Status Never [...]
[2021-02-21] MEDS: Normal Saline - Diluent 50 ML VIAL IV (14:53)
[2021-02-21] MEDS: Omnipaque 350 MG/ML 100 ML BTL IJ (14:54)
[2021-02-21] MEDS: Normal Saline Flush 10 ML SYR IVP (14:55)
--- NOTE | 2021-02-21 14:55 | DI.CT_ITS ---
Exam(s) CT ABDOMEN PELVIS W EXAM: CT ABDOMEN PELVIS W INDICATION: LLQ ABD PAIN. COMPARISON: No exams were available for comparison TECHNIQUE: FINDINGS: CT examination of the abdomen and pelvis was performed with a bolus infusion of 100 cc of Omnipaque 3 50. Images obtained through the lung bases are unremarkable. The liver is unremarkable in appearance except for a small inferior right lobe hepatic lesion measuri ng about 1 cm in diameter which is fluid attenuation and probably represents a cyst.. Gallbladder and bile ducts are CT normal. Pancreas appears normal. Spleen is unremarkable in appearance. Adrenals appear normal. The kidneys are unremarkable with no evidence of hydronephrosis, nephrolithiasis, or renal mass excep t for a left renal cortical cyst measuring 14 millimeters in diameter period.. Urinary bladder unrem arkable. Abdominal aorta is of normal diameter and no major vascular abnormality is seen. No abdominal wall hernia. No abdominal or pelvic adenopathy. UPHOL[employer]CH[employer]IC structures appear intact. Appendix is normal. No evidence of diverticulitis or bowel obstruction. IMPRESSION: Negative CT examination of the abdomen and pelvis. RADIATION DOSE DELIVERED: 992.3mGy.cm Total DLP 992.3mGy.cm Total DLP CTDIvol RADIATION OPTIMIZATION: All CT scans at this facility use at least one of these dose optimization te chniques: automated exposure control; mA and/or kV adjustment per patient size (includes targeted exa ms where dose is matched to clinical indication); or iterative reconstruction.
== END 2021-02-21 01:34 ==
PROVIDERS: PCP Nurse Practitioner Family; Visit Provider Nurse Practitioner Family
DX: R10.32 Left lower quadrant pain (principal); K76.89 Other specified diseases of liver; N28.1 Cyst of kidney, acquired
CPT/HCPCS: 74177; J3490

== ENCOUNTER 2021-02-28 15:04 | Outpatient (REF) | payer MEDICAID, SELFPAY ==
[2021-02-28 15:42] LABS: HCT 41.4 % (36.0-46.0); HGB 14.1 g/dL (11.2-15.7); MCH 29.8 pg (27.0-33.0); MCHC 34.1 % (32.0-36.0); MCV 87.5 fL (80-95); MPV 11.4 fL (8.0-11.0); Platelet Count 291 10^3/uL (130-400); RBC 4.73 10^6/uL (3.93-5.22); RDW 12.5 % (11.7-14.6); RDW-SD 39.9 fL; WBC 7.83 10^3/uL (4.4-10.8)
[2021-03-01 01:07] LABS: COVID-19 RT-PCR UVMMC Result Negative (Negative)
== END 2021-02-28 15:05 | disposition home or self-care (01) ==
LOC: NCHCN 15:04
PROVIDERS: PCP Nurse Practitioner Family; Visit Provider Nurse Practitioner Family
DX: Z20.822 Contact with and (suspected) exposure to COVID-19 (principal); R10.32 Left lower quadrant pain
CPT/HCPCS: 85027; U0003; 87086

== ENCOUNTER 2021-03-04 11:26 | Outpatient (REF) | payer MEDICAID, SELFPAY ==
[2021-03-05 04:05] LABS: COVID-19 RT-PCR UVMMC Result Negative (Negative)
== END 2021-03-04 11:27 | disposition home or self-care (01) ==
LOC: NCHCN 11:26
PROVIDERS: PCP Nurse Practitioner Family; Visit Provider Nurse Practitioner Family
DX: Z20.822 Contact with and (suspected) exposure to COVID-19 (principal)
CPT/HCPCS: U0003

== ENCOUNTER 2021-05-07 15:12 | Outpatient (REF) | payer MEDICAID, SELFPAY ==
--- OUTSIDE RECORDS SUMMARY | 2021-05-07 15:14 | XMS_ITS ---
:1955 Author Care Team Providers Name Role Phone [facility] Primary Care Provider [phone] RELIABLE RESPIRATORY OTHER [phone] NITESH MLILS Primary Care Provider [phone] Allergies Code Code System Name Reaction Severity Status Onset 704 RxNorm Amitriptyline ? ? Active ? 91924 RxNorm Lisinopril ? ? Active ? 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 Social History Tobacco Smoking Status Never [...]
[2021-05-07 15:27] LABS: Hemoglobin A1C 6.8 % (<5.7)
[2021-05-07 15:36] LABS: ALT 39 U/L (14-59); AST 18 U/L (15-37); Calculated LDL 103 mg/dL (<100); Cholesterol 166 mg/dL (<200); HDL Cholesterol 45 mg/dL (40-60); Triglyceride 90 mg/dL (<150)
[2021-05-08 09:24] LABS: HIV-1/2 Ag & Ab Screen Negative (Negative)
[2021-05-08 09:36] LABS: Hepatitis C Ab w Rflx HCV PCR Negative (Negative)
== END 2021-05-07 15:13 | disposition home or self-care (01) ==
LOC: NCHCN 15:12
PROVIDERS: PCP Nurse Practitioner Family; Visit Provider Nurse Practitioner Family
DX: E78.5 Hyperlipidemia, unspecified (principal); E11.9 Type 2 diabetes mellitus without complications; Z11.59 Encounter for screening for other viral diseases; Z11.4 Encounter for screening for human immunodeficiency virus [HIV]
CPT/HCPCS: 80061; 86803; 87389; 83036; 84450; 84460

== ENCOUNTER 2021-06-10 19:10 | Outpatient (REF) | payer MEDICAID, SELFPAY ==
[2021-06-10 21:24] LABS: HCT 39.4 % (36.0-46.0); HGB 13.3 g/dL (11.2-15.7); MCH 30.1 pg (27.0-33.0); MCHC 33.8 % (32.0-36.0); MCV 89.1 fL (80-95); MPV 11.5 fL (8.0-11.0); Platelet Count 258 10^3/uL (130-400); RBC 4.42 10^6/uL (3.93-5.22); RDW 12.5 % (11.7-14.6); RDW-SD 40.9 fL; WBC 9.46 10^3/uL (4.4-10.8)
[2021-06-10 21:30] LABS: BUN 17 mg/dL (7-18); CREATININE 0.7 mg/dL (0.55-1.02); Calcium 9.4 mg/dL (8.5-10.1); Chloride 101 mmol/L (98-107); Glucose 165 mg/dL (74-106); Magnesium 1.8 mg/dL (1.8-2.4); Potassium 3.9 mmol/L (3.5-5.1); Sodium 138 mmol/L (136-145)
== END 2021-06-10 19:11 | disposition home or self-care (01) ==
LOC: NCHCN 19:10
PROVIDERS: PCP Nurse Practitioner Family; Visit Provider Internal Medicine
DX: R00.2 Palpitations (principal)
CPT/HCPCS: 80048; 85027; 83735

== ENCOUNTER 2021-06-11 08:25 | Outpatient (RCR) | payer MEDICAID, SELFPAY ==
--- OUTSIDE RECORDS SUMMARY | 2021-06-11 08:27 | XMS_ITS ---
:1955 Author Care Team Providers Name Role Phone [facility] Primary Care Provider [phone] RELIABLE RESPIRATORY OTHER [phone] NITESH MILLS Primary Care Provider [phone] Allergies Code Code System Name Reaction Severity Status Onset 704 RxNorm Amitriptyline ? ? Active ? 38465 RxNorm Lisinopril ? ? Active ? 6918 [...] 06/13/2020 Obstructive Sleep Apnea Syndrome Estela Franklin NP: [address] [place] [phone], Ph. Social History Tobacco Smoking Status Never [...]
--- NOTE | 2021-06-13 10:45 | HOLTER_ITS ---
APPROVED REPORT Conclusion This is a 48-hour Holter monitor ordered for palpitations Predominant rhythm was sinus with an average heart rate of 59. Minimum was 47, maximum 94 There were rare ventricular ectopic beats There were rare atrial premature beats. There was no supraventricular tachycardia There was no atrial fibrillation. There was no high-grade AV block. There were no pauses greater th an 3 seconds Episodes labeled atrial fibrillation were in fact sinus rhythm No patient symptoms were reported
== END 2021-07-10 23:59 | disposition home or self-care (01) ==
LOC: RT 08:25
PROVIDERS: PCP Nurse Practitioner Family; Visit Provider Internal Medicine
DX: R00.2 Palpitations (principal)
CPT/HCPCS: 93225; 93226

== ENCOUNTER 2021-06-17 12:06 | Outpatient (CLI) | payer MEDICAID, SELFPAY ==
--- NOTE | 2021-07-07 08:30 | W.CARDEVENT ---
Date of service: 07/07/21 Time of Service: 08:31 Cardiac Event Recorder Referring Provider:: Israel Horn Indications:: Palpitations Cardiac Event Note: This is a 14-day cardiac event monitor, ordered for palpitations. Predominant rhythm is sinus. Average heart rate was 57. Minimum was 42, maximum 106 There were no ventricular dysrhythmias There were rare atrial premature beats There was no atrial fibrillation, no high-grade AV block, no pauses greater than 3 seconds Patient symptoms were reported, all of which corresponded to sinus rhythm
== END 2021-06-17 12:07 | disposition home or self-care (01) ==
LOC: RT 12:07
PROVIDERS: PCP Nurse Practitioner Family; Visit Provider Internal Medicine
DX: R00.1 Bradycardia, unspecified (principal); I49.9 Cardiac arrhythmia, unspecified
CPT/HCPCS: 93246

== ENCOUNTER → 2021-08-12 00:33 | Outpatient (CLI) | payer MEDICAID, SELFPAY ==
--- NOTE | 2021-08-12 14:30 | DI.MAMMO_ITS ---
Exam(s) MAMMO SCREENING EXAM: MAMMO SCREENING CLINICAL HISTORY: SCREENING, Z12.39. TECHNIQUE: Bilateral full field digital CC and MLO mammographic images were obtained with 3D tomosyn thesis and utilizing computer aided detection (CAD). COMPARISON: Prior mammograms were reviewed, the most recent being May 2020. FINDINGS: There has been no significant change in the appearance and distribution of the fibroglandular tissue. There are no CAD designations. Small benign-appearing nodule laterally in breast is unchanged prior studies. There are no new spiculated masses nor malignant appearing microcalcification groups. There is no significant architectural distortion nor skin thickening-retraction. IMPRESSION: No radiographic evidence of malignancy. BI-RADS Category 1 - Negative Breast Density - Category B - Scattered areas of fibroglandular density Breast density Category C or D implies that the patient has dense breast tissue. Dense breast tissue can make it harder to find cancer on a mammogram. Dense breast tissue is also associated with an incr eased risk of breast cancer. This information about the result of the mammogram report was provided to the patient to raise their awareness. Use this report when you speak with the patient about their risks for breast cancer, which includes their family history. At that time, you may recommend additional screening tests (Ultrasoun d or MRI) as these tests may add significant information. A negative radiographic report should not delay biopsy if a dominant or clinically suspicious mass is present. Up to ten percent of cancers are not identified on mammography. A negative report may reinforce clinical impression. Adenosis and dense breasts may obscure an underlying neoplasm. False positive reports average 6 to 10%. Patient will receive a letter notifying them of these results.
== END ==
PROVIDERS: PCP Nurse Practitioner Family; Visit Provider Nurse Practitioner Family
DX: Z12.31 Encounter for screening mammogram for malignant neoplasm of breast (principal)
CPT/HCPCS: 77063; 77067

== ENCOUNTER 2021-12-06 11:49 | Outpatient (REF) | payer MEDICAID, SELFPAY ==
[2021-12-06 16:48] LABS: Bilirubin Small (Negative); Blood Large (Negative); Clarity Cloudy (Clear); Glucose Negative (Negative); Ketones Negative (Negative); Leukocyte Esterase Trace (Negative); Nitrite Positive (Negative); Specific Gravity >= 1.030 (1.005-1.025); Urobilinogen 0.2 EU/dL (Up TO 0.2)
[2021-12-06 17:01] LABS: RBC >50 HPF (0-2)
[2021-12-06 17:02] LABS: C & S Indicated? C&S Done As Ordered; Epithelial Cells Few HPF (Negative)
== END 2021-12-06 11:50 | disposition home or self-care (01) ==
LOC: NCHCN 11:49
PROVIDERS: PCP Nurse Practitioner Family; Visit Provider Physician Assistant Medical
DX: R31.9 Hematuria, unspecified (principal)
CPT/HCPCS: 87077; 81003; 81015; 87086; 87186

== ENCOUNTER 2021-12-19 18:00 | Outpatient (REF) | payer MEDICAID, SELFPAY | END 2021-12-19 18:01 | disposition home or self-care (01) | LOC: NCHCN 18:00 | PROVIDERS: PCP Nurse Practitioner Family; Visit Provider Nurse Practitioner Family | DX: N39.0 Urinary tract infection, site not specified (principal) | CPT/HCPCS: 87077; 87086; 87186 ==

== ENCOUNTER 2022-01-12 07:54 | Day surgery (SDC) | payer MEDICAID, SELFPAY ==
[2022-01-12] VITALS (7 sets, daily range): BP systolic 105–148; BP diastolic 42–77; PULSE 39–49; RESP 16–22; TEMP 36–36.3; O2SAT 95–99; BMI 15.9
--- NOTE | 2022-01-12 06:19 | W.ANESPRE ---
General Info Date of Service Date Performed: 01/12/22 Height: 5 ft 2 in Weight: 39.503 kg Body Mass Index (BMI): 15.9 Surgical Procedure: Operation Date: 01/12/22 10:10 Proposed Procedure Side Surgeon p Mid Uretheral Sling Bolivar Brandon MD Meds Allergies and Home Medications Allergies Allergy/AdvReac Type Severity Reaction Status Date / Time metoprolol Allergy Severe Other (See Verified 01/12/22 08:09 Comment) Penicillins Allergy Intermediate Hives Verified 01/12/22 08:09 hydrochlorothiazide Allergy Mild Other (See Unverified 01/12/22 08:09 Comment) amitriptyline AdvReac Severe Visual Verified 01/12/22 08:09 Disturbances lisinopril AdvReac Mild nausea Verified 01/12/22 08:09 Home Medication Medication Instructions Recorded losartan 100 mg tablet 100 mg PO HS 07/04/15 pravastatin 40 mg tablet 40 mg PO HS 07/04/15 sertraline 100 mg tablet 25 mg PO HS 05/23/20 spironolactone 25 mg tablet 2 tab PO QAM 01/09/22 diltiazem HCl 240 mg 1 cap PO HS 01/12/22 capsule,extended release 24 hr metformin 500 mg tablet,extended 1 tab PO BID 01/12/22 release 24 hr Current Visit Medications: Current Medications Generic Name Dose Route Start Last Admin Trade Name Freq PRN Reason Stop Dose Admin Ringer's Solution 1,000 mls @ 80 mls/hr 01/12/22 06:00 IV 02/08/22 23:59 INFUSION REGINO Ciprofloxacin 400 mg in 200 mls @ 200 mls/hr 01/12/22 06:00 Cipro I.V. IVPB 01/12/22 16:00 PREOP REGINO IV Miscellaneous Supplies 1 each 01/12/22 06:00 Iv Access IV 02/08/22 23:59 DIRECTED REGINO Sodium Chloride 0 ml 01/12/22 06:00 Normal Saline Flush 10 Ml Syr IV 02/08/22 23:59 PRN PRN Sodium Chloride 0 ml 01/12/22 06:00 Normal Saline 10 Ml Vial IJ 02/08/22 23:59 DIRECTED PRN Sterile Water 0 ml 01/12/22 06:00 Water,Injection,Sterile 10 Ml Vial IJ 02/08/22 23:59 DIRECTED PRN PFSH Active Problems Active Problems: Problem Status Onset Code Post-menopausal bleeding 10/18/15 N95.0 Hematemesis K92.0 Thickened endometrium R93.89 History of D&C Z98.890 UTI (urinary tract infection) N39.0 Status post D&C Z98.890 Stress incontinence N39.3 Medical History Medical History Bradycardia Per pt. reports low 50's Colonic polyp Depression Dyspnea on exertion Endometrial hyperplasia Epigastric pain GERD (gastroesophageal reflux disease) Hematemesis Hematuria Hx of diabetes mellitus Hyperlipidemia Hypertension Insomnia Left knee pain Menopause Obesity Pedal edema Restless leg syndrome Snoring Stress incontinence Subclinical hypothyroidism Surgical History Surgical History History of esophagogastroduodenoscopy (EGD) (02/22/18) dr vivas, normal Hx of colonoscopy Tubal Ligation, Laparoscopic Tobacco Smoking/Tobacco Use Status: Never Alcohol Alcohol Intake: never Substance Use Substance use: Never Substance use type: does not use Prental History History 3 Para 3 Hx # Term Pregnancies 3 Multiple births Hx # Pregnancies Ectopic pregnancies AB induced Hx Number of Living Children 3 AB spontaneous Vital Signs and Lab Results Vital Signs Most Recent Vital Signs in EMR: Temp Pulse Resp BP Pulse Ox 36.3 C L 49 L 16 148/63 H 99 01/12/22 08:30 01/12/22 08:30 01/12/22 08:30 01/12/22 08:30 01/12/22 08:30 Lab Results Blood Type / Crossmatch: No Data to Display Complete Blood Count: No Data to Display Complete Metabolic Panel: No Data to Display Liver Function Panel: No Data to Display Coagulation Panel: No Data to Display Cardiac Panel: No Data to Display Arterial Blood Gas: No Data to Display Venous Blood Gas: No Data to Display Pancreas Panel: No Data to Display Thyroid Panel: No Data to Display Infectious Disease: No Data to Display Blood Cultures: No Data to Display Toxicology Panel: No Data to Display Imaging and Studies Imaging and Studies Study information below may be from another EMR and interpreted by another provider. Please see original notes in EMR for more complete details. Stress Test Summary: : 7 mets, no symptoms suggestive of ischemia, 1 mmST depressions in lateral during peak. MPI 79% EF, no ischemia noted. Echocardiogram Summary: 06/2020: LVEF 55%, RVSP 28.9, no sig valve issues. Other Study Summary:: event recorder, 06/2021: 14 days, sinus rhythm, no a fib, no high grade block. Anesthesia Assessment and Plan Anesthesia History Personal History: No History of Anesthesia Complications Family History: No Family History of Anesthesia Complications Exercise Tolerance Exercise Tolerance: Metabolic Equivalents>4 Cardiac & Pulmonary Exam Cardiac Exam: Normal S1/S2 Heart Sounds Pulmonary Exam: Clear Bilateral Breath Sounds Implantable Cardiac Device Does patient have a Pacemaker or an ICD?: No Airway Exam Known Difficult Airway: No Mallampati Class: 4 Mouth Opening: Narrow (< 3cm) Thyromental Distance: Less than 3 cm Neck Range of Motion: Full ROM Neck Circumference: Thick Teeth Condition: Other (prominent/posterior sloping front teeth, large tounge. ) ASA Classification ASA Score: ASA 2 Emergency Case?: No NPO Status NPO Status: NPO Clears >2 hours, Solids >8 hours Anesthesia Plan Resuscitation Status: Full Code Anesthesia Technique: General Anesthesia Airway Planned: LMA Monitors Used: Standard Monitors Preoperative Comments:: 66 yo female for sling. Sig PMHx: GERD (denies having this in years), ADHIKARI, HTN (diltiazem, losartan, spironolactone), DM (metformin) RLS, snoring/MINDY, never smoker/etoh. Previous Anes: no issues. LMA 3, difficult mask (two hand with OPA)
[2022-01-12] MEDS: Lactated Ringers 1,000 ML 80 ML IV (08:50)
[2022-01-12] MEDS: CIPROFLOXACIN 400 MG/200 ML BAG 200 MG IVPB (08:52)
--- NOTE | 2022-01-12 09:36 | W.PM.HP.N ---
Date of service: 01/12/22 Time of Service: 09:36 Assessment and Plan Assessment and plan (1) Stress incontinence: Status: Acute Assessment and plan: We will move forward with a midurethral sling to address her stress incontinence. We discussed potential side effects including bleeding and infection. We also discussed the possibility of retention due to urethral obstruction and continued urinary incontinence. History of Present Illness History of Present Illness Chief Complaint: Stress urinary Incontinence Narrative: Maryanne is a 66-year-old female with history of stress incontinence referred to urology by [facility].? She states the stress incontinence has been occurring for years but over the past year it has worsened.? She notes that she has done pelvic floor physical therapy past.? She felt that this did nothing for her.? She recently saw [facility] with the thought that pessary use would help with her stress incontinence.? She was noted to be a candidate for surgical intervention instead of pessary use. She reports that her incontinence happens mostly with coughing, sneezing,.? She goes through 2-3 pads per day. She does not have retention, chronic recurrent UTTs, kidney stones, or consitpation. Review of Systems Narrative: No fevers or chills No vision change or dysphasia Hx hypothyroidism. No diabetes No shortness of breath, cough or hemoptysis No chest pain or palpitations Hx GERD. No nausea, vomiting, hepatitis, ulcers, jaundice No seizures, strokes or peripheral neuropathy No bleeding disorders or anemia No gout PFSH All Active Problems Post-menopausal bleeding (Acute 10/18/15) Hematemesis (Acute) Thickened endometrium (Acute) History of D&C (Acute) 01/04/2019 with hysteroscopy. Findings: Atrophic endometrium to lower uterine segment polyps. UTI (urinary tract infection) (Acute) 01/04/2019. Presented to ED 3 days after D&C and hysteroscopy. Cultures pending. Rx with Keflex. Status post D&C (Acute) Stress incontinence (Acute) Medical History Bradycardia Per pt. reports low 50's Colonic polyp Depression Dyspnea on exertion Endometrial hyperplasia Epigastric pain GERD (gastroesophageal reflux disease) Hematemesis Hematuria Hx of diabetes mellitus Hyperlipidemia Hypertension Insomnia Left knee pain Menopause Obesity Pedal edema Restless leg syndrome Snoring Stress incontinence Subclinical hypothyroidism Surgical History History of esophagogastroduodenoscopy (EGD) (02/22/18) dr vivas, normal Hx of colonoscopy Tubal Ligation, Laparoscopic Family History Maternal Uncle Colon cancer Maternal Aunt Colon cancer Social History Smoking/Tobacco Use Status: Never Smoking risk assessment performed?: Yes Alcohol Intake: former Drug use: Never Substance use type: does not use Household members: spouse and other Details: H- Oj Number of Children: 3 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 [employer] Do you feel safe at home: Yes Do you feel safe in your relationship?: Yes History History 3 Para 3 Hx # Term Pregnancies 3 Multiple births Hx # Pregnancies Ectopic pregnancies AB induced Hx Number of Living Children 3 AB spontaneous Meds Allergies and Home Medications Allergies Allergy/AdvReac Type Severity Reaction Status Date / Time metoprolol Allergy Severe Other (See Verified 01/12/22 08:09 Comment) Penicillins Allergy Intermediate Hives Verified 01/12/22 08:09 hydrochlorothiazide Allergy Mild Other (See Unverified 01/12/22 08:09 Comment) amitriptyline AdvReac Severe Visual Verified 01/12/22 08:09 Disturbances lisinopril AdvReac Mild nausea Verified 01/12/22 08:09 Home Medications Medication Instructions Recorded Confirmed Type losartan 100 mg tablet 100 mg PO HS 07/04/15 01/12/22 History pravastatin 40 mg tablet 40 mg PO HS 07/04/15 01/12/22 History sertraline 100 mg tablet 25 mg PO HS 05/23/20 01/12/22 History spironolactone 25 mg tablet 2 tab PO QAM 01/09/22 01/12/22 History diltiazem HCl 240 mg 1 cap PO HS 01/12/22 01/12/22 History capsule,extended release 24 hr metformin 500 mg tablet,extended 1 tab PO BID 01/12/22 01/12/22 History release 24 hr Exam Const General: cooperative Neck Neck: normal visual inspection Resp Effort & Inspection: normal respiratory effort Auscultation: clear to auscultation bilaterally Cardio Rate: regular rate Rhythm: regular rhythm GI Inspection: normal to inspection Palpation: soft Neuro General: patient alert, patient awake and patient oriented x3 Results Last Vital Signs Temp 36.3 C L 01/12/22 08:30 Pulse 49 L 01/12/22 08:30 Resp 16 01/12/22 08:30 BP 148/63 H 01/12/22 08:30 Pulse Ox 99 01/12/22 08:30
[2022-01-12] MEDS: Lidocaine 2% Jelly 6 ML SYR (10:45)
[2022-01-12] MEDS: Lidocaine 1% Pres-Free 30 ML VIAL (12:10)
--- NOTE | 2022-01-12 12:26 | W.PM.DSUDISC ---
Discharge Plan Disposition Patient Disposition: HOME Condition: Good Discharge Details Reason For Visit: midurethral sling Attending Provider: Bolivar Brandon Primary Care Provider: Jessica Wilson Home Meds and New Rx's Prescriptions: No Action pravastatin 40 MG tablet 40 mg PO HS losartan 100 MG tablet 100 mg PO HS sertraline 100 mg Tablet 25 mg PO HS spironolactone 25 mg tablet 2 tab PO QAM Label Comments: TAKE 2 TABLETS BY MOUTH ONCE DAILY metformin 500 mg tablet extended release 24 hr 1 tab PO BID Label Comments: TAKE ONE TABLET BY MOUTH EVERY DAY diltiazem HCl 240 mg capsule,extended release 24hr 1 cap PO HS Label Comments: TAKE ONE CAPSULE BY MOUTH EVERY DAY Discharge Instructions Additional Instructions: followup @ 2 weeks nothing per vagina until cleared at followup visit Activity:: no lifting over 20 pounds until followup visit Shower/Bathe:: 24 hours Diet:: As Tolerated Discharge Orders Discharge Orders: Discharge Order (Routine); Ordered 01/12/22 Ordered By: Bolivar Brandon Discharge Data Discharge Comment: patient must void prior to discharge DS: Diagnosis Discharge Diagnosis (1) Stress incontinence: Status: Acute
--- NOTE | 2022-01-12 12:30 | ROE_ITS ---
Date of service: 01/12/22 Time of Service: 12:30 Operative Note Operative Note DATE OF PROCEDURE: 01/12/22 PRE-OP DIAGNOSIS: Stress urinary incontinence POST-OP DIAGNOSIS: same PROCEDURE: midurethral sling placement (TVT) SURGEON: Bolivar Brandon ANESTHESIA TYPE: General LMA/ETT Refer to Anesthesia Record ESTIMATED BLOOD LOSS: 50 PATHOLOGY: none sent COMPLICATIONS: None Patient was transported to: PACU Patient's condition: stable Implants: midurethral sling Indications: Is a 66-year-old woman who has a history of urinary incontinence. Her leakage occurs with activity and is consistent with stress urinary incontinence. She failed conservative management with pelvic floor physical therapy and behavioral modification. She presents for a mid urethral sling. Procedure Description: Jai was brought to the operating room on 01/12/2022. She was given a dose of preoperative antibiotics. After successful induction of general anesthesia, she was placed in the dorsal lithotomy position. Her genitalia and lower abdomen were prepped and draped st erilely. 2% Xylocaine jelly was instilled into the urethra to act as a local anesthetic. A 16 Belarusian Edmond catheter was passed through the urethra into the bladder. The catheter balloon was inflated with 10 cc of sterile water and the bladder was drained. The catheter was then clamped. We utilized hydrodistention by injecting a combination of lidocaine with saline in the plane between the vaginal mucosa and the urethra. We then made a midline incision overlying the midportion of the urethra. A plane was developed on each side of the urethra using sharp and blunt dissection. We then attempted to utilize a transobturator mid urethral sling, but I was unable to complete the placement of the TOT when the tensioning mechanism could be deployed. We then utilized a transvaginal tape to place a mid urethral sling. We passed one of the needles on each side of the urethra and advanced the needles up to the abdominal wall. The needles were delivered through separate stab wounds on the abdomen. The Edmond catheter was then removed and cystoscopy was performed using a 17 Belarusian rigid cystoscope. We utilized a 70 degree lens and we found no evidence of bladder or urethral injury due to passage of the needles. The cystoscope was withdrawn and the Edmond catheter was replaced. The needles were advanced further onto the abdomen and removed from the tape. The plastic coating on the TVT was removed and tensioning was performed by placing a Herrera scissors between the urethra and the tape. The ends of the tape were cut flush against the abdominal wall and the tape was tucked back but the lateral the level of the skin. The skin was closed with Dermabond. The vaginal incision was then closed with a [id number] 3-0 Vicryl. The Edmond catheter was removed. The patient tolerated the procedure well with no complications.
--- NOTE | 2022-01-12 12:50 | W.PM.DSUDISC ---
Discharge Plan Disposition Patient Disposition: HOME Condition: Good Discharge Details Reason For Visit: midurethral sling Attending Provider: Bolivar Brandon Primary Care Provider: Jessica Wilson Home Meds and New Rx's Prescriptions: New tramadol 50 mg tablet 50 mg PO Q8H PRN (Reason: pain) Qty: 12 0RF No Action pravastatin 40 MG tablet 40 mg PO HS losartan 100 MG tablet 100 mg PO HS sertraline 100 mg Tablet 25 mg PO HS spironolactone 25 mg tablet 2 tab PO QAM Label Comments: TAKE 2 TABLETS BY MOUTH ONCE DAILY metformin 500 mg tablet extended release 24 hr 1 tab PO BID Label Comments: TAKE ONE TABLET BY MOUTH EVERY DAY diltiazem HCl 240 mg capsule,extended release 24hr 1 cap PO HS Label Comments: TAKE ONE CAPSULE BY MOUTH EVERY DAY Discharge Instructions Additional Instructions: followup @ 2 weeks nothing per vagina until cleared at followup visit Activity:: no lifting over 20 pounds until followup visit Shower/Bathe:: 24 hours Diet:: As Tolerated Discharge Orders Discharge Orders: Discharge Order (Routine); Ordered 01/12/22 Ordered By: Bolivar Brandon Discharge Data Discharge Comment: patient must void prior to discharge DS: Diagnosis Discharge Diagnosis (1) Stress incontinence: Status: Acute
--- NOTE | 2022-01-12 13:05 | W.ANESPOSTOP ---
Postoperative Evaluation Date, Time and Location Date Performed: 01/12/22 Time Performed: 13:05 Patient Location: PACU Vital Signs Most Recent Imported Vital Signs: Most Recent Vital Signs Temp Pulse Resp BP Pulse Ox 36.1 C L 48 L 22 112/51 L 96 01/12/22 12:52 01/12/22 12:52 01/12/22 12:52 01/12/22 12:52 01/12/22 12:52 Pain Score Most Recent Pain Score: Most Recent Pain Score Pain Level 0 01/12/22 12:52 Assessment Mental Status: Awake (Alert & Oriented to Patient Baseline) Airway and Respiratory Function: Patent airway with normal (patient baseline) respiratory exam Cardiovascular Function: Hemodynamically Stable Hydration Status: Adequately Hydrated Nausea & Vomiting: No Nausea or Vomiting Pain: Pain is tolerable per patient Peripheral Nerve Block: Patient did not receive a nerve block
[2022-01-12] MEDS: Phenazopyridine 200 MG TAB PO (13:24)
== END 2022-01-12 14:10 | disposition home or self-care (01) ==
PROVIDERS: PCP Nurse Practitioner Family; Visit Provider Urology
PROC: (CPT 57288; principal; 2022-01-12 10:00)
DX: N39.3 Stress incontinence (female) (male) (principal); I10 Essential (primary) hypertension; E78.5 Hyperlipidemia, unspecified; E66.9 Obesity, unspecified
CPT/HCPCS: 57288; J0131; J0744; J1100; J1885; J2405; J2704

== ENCOUNTER 2022-02-04 15:20 | Outpatient (REF) | payer MEDICAID, SELFPAY ==
[2022-02-04 16:58] LABS: TSH (W/Ref FT4) 2.51 uIU/mL (0.36-3.74)
== END 2022-02-04 15:21 | disposition home or self-care (01) ==
LOC: NCHCN 15:20
PROVIDERS: PCP Nurse Practitioner Family; Visit Provider Nurse Practitioner Family
DX: E11.9 Type 2 diabetes mellitus without complications (principal); E03.9 Hypothyroidism, unspecified
CPT/HCPCS: 83036; 84443

== ENCOUNTER 2022-04-08 09:18 | Outpatient (REF) | payer MEDICAID, SELFPAY ==
[2022-04-08 11:04] LABS: Bilirubin Negative (Negative); Blood Negative (Negative); Clarity Clear (Clear); Glucose 100 mg/dL (Negative); Ketones Negative (Negative); Leukocyte Esterase Negative (Negative); Nitrite Negative (Negative); Specific Gravity 1.025 (1.005-1.025); Urobilinogen 0.2 EU/dL (Up TO 0.2); pH 5.5 (5-8)
== END 2022-04-08 09:19 | disposition home or self-care (01) ==
LOC: LBN 09:18
PROVIDERS: PCP Nurse Practitioner Family; Visit Provider Urology
DX: N39.0 Urinary tract infection, site not specified (principal); N39.3 Stress incontinence (female) (male)
CPT/HCPCS: 81003; 87086

== ENCOUNTER 2022-05-25 08:15 | Day surgery (SDC) | payer MEDICAID, SELFPAY ==
[2022-05-25 08:20] VITALS: BP 144/55; PULSE 48; RESP 18; TEMP 36.2; O2SAT 99
[2022-05-25] MEDS: levoFLOXacin 500 MG TAB PO (08:46)
[2022-05-25] MEDS: Lactated Ringers 1,000 ML 80 ML IV (08:58)
--- NOTE | 2022-05-25 09:22 | W.ANESPRE ---
General Info Date of Service Date Performed: 05/25/22 Height: 5 ft 2 in Weight: 85.3 kg Body Mass Index (BMI): 34.4 Surgical Procedure: Operation Date: 05/25/22 10:40 Proposed Procedure Side Surgeon p Cystoscopy/Urethrolysis Bolivar Brandon MD Meds Allergies and Home Medications Allergies Allergy/AdvReac Type Severity Reaction Status Date / Time Penicillins Allergy Intermediate Hives Verified 05/25/22 08:32 hydrochlorothiazide Allergy Mild unknown Unverified 05/25/22 08:32 amitriptyline AdvReac Severe Visual Verified 05/25/22 08:32 Disturbances metoprolol AdvReac Severe Bradycardia Verified 05/25/22 08:32 lisinopril AdvReac Mild nausea Verified 05/25/22 08:32 Home Medication Medication Instructions Recorded losartan 100 mg tablet 100 mg PO HS 07/04/15 pravastatin 40 mg tablet 40 mg PO HS 07/04/15 sertraline 100 mg tablet 25 mg PO HS 05/23/20 spironolactone 25 mg tablet 2 tab PO QAM 01/09/22 diltiazem HCl 240 mg 1 cap PO HS 01/12/22 capsule,extended release 24 hr metformin 500 mg tablet,extended 1 tab PO BID 01/12/22 release 24 hr Current Visit Medications: Current Medications Generic Name Dose Route Start Last Admin Trade Name Freq PRN Reason Stop Dose Admin Ringer's Solution 1,000 mls @ 80 mls/hr 05/25/22 06:00 05/25/22 08:58 IV 06/21/22 23:59 80 mls/hr INFUSION REGINO Administration IV Miscellaneous Supplies 1 each 05/25/22 06:00 Iv Access IV 06/21/22 23:59 DIRECTED REGINO Levofloxacin 500 mg 05/25/22 06:00 05/25/22 08:46 Levofloxacin 500 Mg Tab PO 05/25/22 23:59 500 mg PREOP REGINO Administration Sodium Chloride 0 ml 05/25/22 06:00 Normal Saline Flush 10 Ml Syr IV 06/21/22 23:59 PRN PRN Sodium Chloride 0 ml 05/25/22 06:00 Normal Saline 10 Ml Vial IJ 06/21/22 23:59 DIRECTED PRN Sterile Water 0 ml 05/25/22 06:00 Water,Injection,Sterile 10 Ml Vial IJ 06/21/22 23:59 DIRECTED PRN PFSH Active Problems Active Problems: Problem Status Onset Code Urinary incontinence R32 Post-menopausal bleeding 10/18/15 N95.0 Hematemesis K92.0 Thickened endometrium R93.89 History of D&C Z98.890 UTI (urinary tract infection) N39.0 Status post D&C Z98.890 Stress incontinence N39.3 Medical History Medical History Bradycardia Per pt. reports low 50's Colonic polyp Depression Dyspnea on exertion Endometrial hyperplasia Epigastric pain GERD (gastroesophageal reflux disease) Hematemesis Hematuria Hx of diabetes mellitus Hyperlipidemia Hypertension Insomnia Left knee pain Menopause Obesity Pedal edema Restless leg syndrome Snoring Stress incontinence Subclinical hypothyroidism Medical History Comments:: baseline bradycardia 40-50s; arrythmia/PVC Surgical History Surgical History History of esophagogastroduodenoscopy (EGD) (02/22/18) dr vivas, normal Hx of colonoscopy Tubal Ligation, Laparoscopic Tobacco Smoking/Tobacco Use Status: Never Alcohol Alcohol Intake: former Substance Use Substance use: Never Substance use type: does not use Prental History History 3 Para 3 Hx # Term Pregnancies 3 Multiple births Hx # Pregnancies Ectopic pregnancies AB induced Hx Number of Living Children 3 AB spontaneous Vital Signs and Lab Results Vital Signs Most Recent Vital Signs in EMR: Most Recent Vital Signs Temp Pulse Resp BP Pulse Ox 36.2 C L 48 L 18 144/55 H 99 05/25/22 08:20 05/25/22 08:20 05/25/22 08:20 05/25/22 08:20 05/25/22 08:20 Point of Care Results Point of Care Results: Finger Stick Blood Glucose 140 05/25/22 08:36 Lab Results Blood Type / Crossmatch: No Data to Display Complete Blood Count: No Data to Display Complete Metabolic Panel: No Data to Display Liver Function Panel: No Data to Display Coagulation Panel: No Data to Display Cardiac Panel: No Data to Display Arterial Blood Gas: No Data to Display Venous Blood Gas: No Data to Display Pancreas Panel: No Data to Display Thyroid Panel: No Data to Display Infectious Disease: No Data to Display Blood Cultures: No Data to Display Toxicology Panel: No Data to Display Imaging and Studies Imaging and Studies Study information below may be from another EMR and interpreted by another provider. Please see original notes in EMR for more complete details. EKG Summary: DATE/TIME OF SERVICE: 05/23/20 1624 : 1955PERFORMING LOCATION: ER APPROVED REPORT Exam: Resting ECG Patient Location: E HR:53 bpm ECG Measurements Heart Rate 53 AXIS WA 158 P 10 QRSd 91 QRS 5 QT 471 T51 QTc 443 Conclusion Sinus bradycardia. No st elevation Stress Test Summary: : 7 mets, no symptoms suggestive of ischemia, 1 mmST depressions in lateral during peak. MPI 79% EF, no ischemia noted. Echocardiogram Summary: 06/2020: LVEF 55%, RVSP 28.9, no sig valve issues. Other Study Summary:: event recorder, 06/2021: 14 days, sinus rhythm, no a fib, no high grade block. Anesthesia Assessment and Plan Anesthesia History Personal History: No History of Anesthesia Complications Family History: No Family History of Anesthesia Complications Exercise Tolerance Exercise Tolerance: Metabolic Equivalents>4 Pertinent Negatives Pertinent Negatives: No Symptoms of GERD Cardiac & Pulmonary Exam Cardiac Exam: Normal S1/S2 Heart Sounds Pulmonary Exam: Clear Bilateral Breath Sounds Implantable Cardiac Device Does patient have a Pacemaker or an ICD?: No Airway Exam Known Difficult Airway: No Mallampati Class: 3 Mouth Opening: Narrow (< 3cm) Thyromental Distance: Less than 3 cm Neck Range of Motion: Full ROM Neck Circumference: Thick Teeth Condition: Other (prominent/posterior sloping front teeth, large tounge. ) ASA Classification ASA Score: ASA 2 Emergency Case?: No NPO Status NPO Status: NPO Clears >2 hours, Solids >8 hours Anesthesia Plan Resuscitation Status: Full Code Anesthesia Technique: General Anesthesia Airway Planned: Natural Airway Monitors Used: Standard Monitors
--- NOTE | 2022-05-25 09:45 | W.PM.HP.N ---
Date of service: 05/25/22 Time of Service: 09:45 Assessment and Plan Assessment and plan (1) Urinary incontinence: Status: Acute Assessment and plan: For urethrolysis to decrease bladder outlet resistance History of Present Illness History of Present Illness Chief Complaint: Urinary incontinence Narrative: This is a 66-year-old woman who has a history of mixed urinary incontinence. Her urgency incontinence was controlled medically. We then did a mid urethral sling for her stress incontinence. She did quite well for about a month after the procedure, but then began having worsening incontinence. She did not respond to anticholinergic medications. We then did a urodynamic study which showed low bladder pressure during filling but low bladder contractility during voiding. She now presents for urethral lysis to decrease some of her bladder outlet resistance. Review of Systems Narrative: No fevers or chills No vision change or dysphasia No diabetes or thyroid dysfunction No shortness of breath, cough or hemoptysis No chest pain or palpitations No nausea, vomiting, hepatitis, ulcers, jaundice No seizures, strokes or peripheral neuropathy No bleeding disorders or anemia No gout PFSH All Active Problems Urinary incontinence (Acute) Post-menopausal bleeding (Acute 10/18/15) Hematemesis (Acute) Thickened endometrium (Acute) History of D&C (Acute) 01/04/2019 with hysteroscopy. Findings: Atrophic endometrium to lower uterine segment polyps. UTI (urinary tract infection) (Acute) 01/04/2019. Presented to ED 3 days after D&C and hysteroscopy. Cultures pending. Rx with Keflex. Status post D&C (Acute) Stress incontinence (Acute) Medical History Bradycardia Per pt. reports low 50's Colonic polyp Depression Dyspnea on exertion Endometrial hyperplasia Epigastric pain GERD (gastroesophageal reflux disease) Hematemesis Hematuria Hx of diabetes mellitus Hyperlipidemia Hypertension Insomnia Left knee pain Menopause Obesity Pedal edema Restless leg syndrome Snoring Stress incontinence Subclinical hypothyroidism Surgical History History of esophagogastroduodenoscopy (EGD) (02/22/18) dr vivas, normal Hx of colonoscopy Tubal Ligation, Laparoscopic Family History Maternal Uncle Colon cancer Maternal Aunt Colon cancer Social History Smoking/Tobacco Use Status: Never Smoking risk assessment performed?: Yes Alcohol Intake: former Drug use: Never Substance use type: does not use Household members: spouse and other Details: H- Oj Number of Children: 3 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 [employer] Do you feel safe at home: Yes Do you feel safe in your relationship?: Yes History History 3 Para 3 Hx # Term Pregnancies 3 Multiple births Hx # Pregnancies Ectopic pregnancies AB induced Hx Number of Living Children 3 AB spontaneous Meds Allergies and Home Medications Allergies Allergy/AdvReac Type Severity Reaction Status Date / Time Penicillins Allergy Intermediate Hives Verified 05/25/22 08:32 hydrochlorothiazide Allergy Mild unknown Unverified 05/25/22 08:32 amitriptyline AdvReac Severe Visual Verified 05/25/22 08:32 Disturbances metoprolol AdvReac Severe Bradycardia Verified 05/25/22 08:32 lisinopril AdvReac Mild nausea Verified 05/25/22 08:32 Home Medications Medication Instructions Recorded Confirmed Type losartan 100 mg tablet 100 mg PO HS 07/04/15 05/25/22 History pravastatin 40 mg tablet 40 mg PO HS 07/04/15 05/25/22 History sertraline 100 mg tablet 25 mg PO HS 05/23/20 05/25/22 History spironolactone 25 mg tablet 2 tab PO QAM 01/09/22 05/25/22 History diltiazem HCl 240 mg 1 cap PO HS 01/12/22 05/25/22 History capsule,extended release 24 hr metformin 500 mg tablet,extended 1 tab PO BID 01/12/22 05/25/22 History release 24 hr Exam Const General: cooperative Neck Neck: supple Resp Effort & Inspection: normal respiratory effort Auscultation: clear to auscultation bilaterally Cardio Rate: regular rate Rhythm: regular rhythm GI Palpation: soft Neuro General: patient alert, patient awake and patient oriented x3 Results Last Vital Signs Temp 36.2 C L 05/25/22 08:20 Pulse 48 L 05/25/22 08:20 Resp 18 05/25/22 08:20 BP 144/55 H 05/25/22 08:20 Pulse Ox 99 05/25/22 08:20 Time Spent Time spent with Patient: <40 minutes Time was spent: other
[2022-05-25 09:53] VITALS: BMI 34.4
[2022-05-25] MEDS: Lidocaine 1% Pres-Free W/EPI 1/200,000 10 ML VIAL (11:18)
--- NOTE | 2022-05-25 11:36 | W.PM.DSUDISC ---
Date of service: 05/25/22 Time of Service: 11:36 Discharge Plan Disposition Patient Disposition: Home Condition: Stable Discharge Details Reason For Visit: urethrolysis Attending Provider: Bolivar Brandon Primary Care Provider: Jessica Wilson Home Meds and New Rx's Prescriptions: New tramadol 50 mg tablet 50 mg PO Q6H PRN (Reason: pain) Qty: 12 0RF Rx Instructions: may use along with tylenol and ibuprofen if needed No Action pravastatin 40 MG tablet 40 mg PO HS losartan 100 MG tablet 100 mg PO HS sertraline 100 mg Tablet 25 mg PO HS spironolactone 25 mg tablet 2 tab PO QAM Patient Comments: TAKE 2 TABLETS BY MOUTH ONCE DAILY metformin 500 mg tablet extended release 24 hr 1 tab PO BID Patient Comments: TAKE ONE TABLET BY MOUTH EVERY DAY diltiazem HCl 240 mg capsule,extended release 24hr 1 cap PO HS Patient Comments: TAKE ONE CAPSULE BY MOUTH EVERY DAY Discharge Instructions Additional Instructions: nothing per vagina for @ 4 weeks followup with me 1 to 2 weeks OK to bathe/shower Stand Alone Forms: Anesthesia Discharge Inst., Silver Daniel (DSU) Activity:: Activity as Tolerated Shower/Bathe:: 24 hours Diet:: As Tolerated Discharge Orders Discharge Orders: Discharge Order (Routine); Ordered 05/25/22 Ordered By: Bolivar Brandon DS: Diagnosis Discharge Diagnosis (1) Urinary incontinence: Status: Acute
[2022-05-25 11:43] VITALS: BP 125/63; PULSE 52; RESP 18; TEMP 36.1; O2SAT 97
--- NOTE | 2022-05-25 11:43 | W.PM.OP ---
Date of service: 05/25/22 Time of Service: 11:44 Operative Note Operative Note DATE OF PROCEDURE: 05/25/22 PRE-OP DIAGNOSIS: Urinary Incontinence POST-OP DIAGNOSIS: same PROCEDURE: Urethrolysis SURGEON: Bolivar Brandon ANESTHESIA TYPE: General:No Airway Refer to Anesthesia Record ESTIMATED BLOOD LOSS: 50 PATHOLOGY: none sent Indications: This is a 66-year-old woman who was initially seen with mixed urinary incontinence. Her urgency incontinence was addressed with bladder relaxer medications. Her stress incontinence was treated with placement of a mid urethral sling. Following the sling placement, she had resolution of her stress incontinence for about a month. She then began having worsening incontinence with urgency. She did not improve with anticholinergics. We did a urodynamic study that showed that her bladder was quite stable during filling but had a low contraction pressure during voiding. We suspected that her urethral sling added too much resistance at the outlet, so she presents now for urethral lysis. Procedure Description: The patient was brought to the operating room on 05/25/2022. She was given preoperative antibiotics. After successful induction of general anesthesia, she was placed in the dorsal lithotomy position. Her genitalia was prepped and draped. A 16 [place]ovan Edmond catheter was passed through the urethra into the bladder. The catheter balloon was inflated with 10 cc of sterile water. The mid urethral area was identified along the anterior vaginal wall. An inverted U-shaped incision was made overlying the urethra. A plane was developed on each side of the urethra out to the pelvic sidewall. We used sharp and blunt dissection to develop our plane. We did not dissect much over the urethra directly. On the right side of the urethra, we are able to identify the sling. I secured the sling and the right ankle and we were able to transect the sling. We did not transect the sling on the patient's left side. I then removed the patient's Edmond catheter and passed a 22 Moldovan cystoscope through the urethra into the bladder. The bladder and urethra were inspected with a 70 degree lens. No bladder injuries were identified. The scope was removed and a 16 Moldovan Edmond catheter was replaced into the bladder. We then closed the vaginal mucosa using [id number] [id number] Vicryl sutures. The patient tolerated this procedure well with no complications. The Edmond catheter was removed. She was taken back to the day surgery unit in stable condition.
[2022-05-25] MEDS: traMADol 50 MG TAB PO (12:17)
[2022-05-25] MEDS: Phenazopyridine 200 MG TAB PO (12:17)
[2022-05-25 12:28] VITALS: BP 148/60; PULSE 56; RESP 18; TEMP 36.4; O2SAT 100
--- NOTE | 2022-05-25 12:35 | W.ANESPOSTOP ---
Postoperative Evaluation Date, Time and Location Date Performed: 05/25/22 Time Performed: 12:35 Patient Location: Day Surgery Unit Vital Signs Most Recent Imported Vital Signs: Most Recent Vital Signs Temp Pulse Resp BP Pulse Ox 36.4 C L 56 L 18 148/60 H 100 05/25/22 12:28 05/25/22 12:28 05/25/22 12:28 05/25/22 12:28 05/25/22 12:28 Pain Score Most Recent Pain Score: Most Recent Pain Score Pain Level 2 05/25/22 12:39 Assessment Mental Status: Awake (Alert & Oriented to Patient Baseline) Airway and Respiratory Function: Patent airway with normal (patient baseline) respiratory exam Cardiovascular Function: Hemodynamically Stable Hydration Status: Adequately Hydrated Nausea & Vomiting: No Nausea or Vomiting Pain: Pain is tolerable per patient Peripheral Nerve Block: Patient did not receive a nerve block
== END 2022-05-25 12:48 | disposition home or self-care (01) ==
PROVIDERS: PCP Nurse Practitioner Family; Visit Provider Urology
PROC: (CPT 53500; principal; 2022-05-25 10:30)
DX: N39.46 Mixed incontinence (principal); E11.9 Type 2 diabetes mellitus without complications; I10 Essential (primary) hypertension
CPT/HCPCS: 53500; J1100; J1885; J2405; J2704

== ENCOUNTER 2022-06-02 10:35 | Outpatient (REF) | payer MEDICAID, SELFPAY | END 2022-06-02 10:36 | disposition home or self-care (01) | LOC: LBN 10:35 | PROVIDERS: PCP Nurse Practitioner Family; Visit Provider Nurse Practitioner Gerontology | DX: N39.0 Urinary tract infection, site not specified (principal) | CPT/HCPCS: 87086 ==

== ENCOUNTER 2022-07-10 00:15 | Outpatient (CLI) | payer MEDICAID, SELFPAY ==
--- NOTE | 2022-07-10 09:45 | DI.DEXA_ITS ---
Exam(s) XR DEXA BONE DENSITY W/WO REMA EXAM: XR DEXA BONE DENSITY W/WO REMA CLINICAL HISTORY: OSTEOPOROSIS SCREENING, Z13.820 TECHNIQUE: Parkzzz C densitometer analysis of left hip, lumbar spine and left forearm. COMPARISON: No exams were available for comparison FINDINGS: Lateral view of the thoracic and lumbar spine shows no evidence of compression fractures. Bone mineral density measurements of the lumbar spine correspond to a total T-score of -0.3, in the normal range. Bone mineral density measurements of the left hip correspond to a total T-score of 0.9. The femoral neck T-score is -0.7, in the normal range.. The left forearm bone mineral density measurements correspond to a T-score of the distal 3rd of 0.0, in the normal range.. IMPRESSION: Normal bone mineral density.
== END 2022-07-10 00:35 ==
LOC: DI 00:15
PROVIDERS: PCP Nurse Practitioner Family; Visit Provider Nurse Practitioner Family
DX: Z13.820 Encounter for screening for osteoporosis
CPT/HCPCS: 77080

== ENCOUNTER 2022-08-18 12:18 | Outpatient (REF) | payer MEDICARE, MEDICAID, SELFPAY ==
[2022-08-18 14:37] LABS: HCT 41.6 % (36.0-46.0); HGB 14.4 g/dL (11.2-15.7); MCH 30.2 pg (27.0-33.0); MCHC 34.6 % (32.0-36.0); MCV 87 fL (80-95); MPV 11.6 fL (8.0-11.0); Platelet Count 251 10^3/uL (130-400); RBC 4.77 10^6/uL (3.93-5.22); RDW-SD 38.8 fL; WBC 7.55 10^3/uL (4.4-10.8)
[2022-08-18 14:54] LABS: ALT 32 U/L (14-59); AST 15 U/L (15-37); Albumin 3.8 g/dL (3.4-5.0); Alkaline Phosphatase 104 U/L (46-116); Anion Gap 7.4 mmol/L (3-11); BUN 13 mg/dL (7-18); Bilirubin, Total 0.4 mg/dL (0.2-1.0); CO2 27.6 mmol/L (21.0-32.0); CREATININE 0.7 mg/dL (0.55-1.02); Calcium 9.1 mg/dL (8.5-10.1); Calculated LDL 122 mg/dL (<100); Chloride 103 mmol/L (98-107); Cholesterol 194 mg/dL (<200); Estimated GFR 95.32 (mL/min/1.73m2); Glucose 173 mg/dL (74-106); HDL Cholesterol 49 mg/dL (40-60); Potassium 4.9 mmol/L (3.5-5.1); Sodium 138 mmol/L (136-145); TSH (W/Ref FT4) 3.76 uIU/mL (0.36-3.74); Total Protein 7.3 g/dL (6.4-8.2); Triglyceride 117 mg/dL (<150)
[2022-08-18 22:34] LABS: FREE T4 0.93 ng/dL (0.76-1.46)
== END 2022-08-18 12:19 | disposition home or self-care (01) ==
LOC: NCHCN 12:18
PROVIDERS: PCP Nurse Practitioner Family; Visit Provider Nurse Practitioner Family
DX: E11.9 Type 2 diabetes mellitus without complications (principal); E78.5 Hyperlipidemia, unspecified; I10 Essential (primary) hypertension; R00.2 Palpitations; F32.89 Other specified depressive episodes; G47.33 Obstructive sleep apnea (adult) (pediatric)
CPT/HCPCS: 80053; 80061; 85027; 84439; 84443

== ENCOUNTER 2022-08-31 01:07 | Outpatient (CLI) | payer MEDICARE, MEDICAID, SELFPAY ==
--- NOTE | 2022-08-31 | DI.MAMMO_ITS ---
Exam(s) MAMMO SCREENING EXAM: MAMMO SCREENING CLINICAL HISTORY: SCREENING,Z12.39 TECHNIQUE: Bilateral full field digital CC and MLO mammographic images were obtained with 3D tomosyn thesis and utilizing computer aided detection (CAD). COMPARISON: Available for comparison. FINDINGS: Masses/Architectural Distortion: There is a new well-circumscribed 4-5 mm nodule in the outer left br east on the craniocaudad view. No areas of architectural distortion are seen. Microcalcifications: No suspicious pleomorphic-type are seen. Skin Thickening/Nipple Retraction: None. IMPRESSION: 1. New 4-5 mm nodule in the outer left breast on the CC view. 2. Spot compression view and a targeted left breast ultrasound are requested for further evaluation. BI-RADS Category 0 - Assessment Incomplete: Need additional imaging evaluation Breast Density - Category B - Scattered areas of fibroglandular density Breast density category C or D implies that the patient has dense breast tissue. Dense breast tissue is very common and is not abnormal but dense breast tissue can make it harder to find cancer on a ma mmogram. Also, dense breast tissue may increase their breast cancer risk. This information about the result of the mammogram report was provided to the patient to raise their awareness. Use this report when you speak with the patient about their risks for breast cancer, which includes their family hist ory. At that time, you may recommend for more screening tests (Ultrasound or MRI) as they might be us eful based on their risk. A negative radiographic report should not delay biopsy if a dominant or clinically suspicious mass is present. Up to ten percent of cancers are not identified on mammography. A negative report may reinforce clinical impression. Adenosis and dense breasts may obscure an underlying neoplasm. False positive reports average 6 to 10%. Patient will receive a letter notifying them of these results.
== END 2022-08-31 01:27 ==
PROVIDERS: PCP Nurse Practitioner Family; Visit Provider Nurse Practitioner Family
DX: Z12.31 Encounter for screening mammogram for malignant neoplasm of breast (principal)
CPT/HCPCS: 77063; 77067

== ENCOUNTER 2022-09-03 01:53 | Outpatient (CLI) | payer MEDICARE, MEDICAID, SELFPAY ==
--- NOTE | 2022-09-03 | DI.MAMMO_ITS ---
Exam(s) MG MAMMO SCREEN CALL BACK UNI US BREAST LT LIMITED EXAM: MG MAMMO SCREEN CALL BACK UNI and U/S breast LT limited CLINICAL HISTORY: F/U MAMMO, R92.8,NEW 4-5 MM NODULE LT. TECHNIQUE: Craniocaudal and mediolateral oblique Full Field Digital Mammography views of the left br east with Computer Aided Diagnosis followed by Tomosynthesis and left breast ultrasound. COMPARISON: Comparison is made with prior examinations. FINDINGS: Mammography/Tomosynthesis: Masses/Architectural Distortion: The tiny well-circumscribed nodule is not well seen. There is a nod ule in the subcutaneous tissues in the outer left breast which was present on the prior examination. Microcalcifictions: No suspicious pleomorphic-type are seen. Skin Thickening/Nipple Retraction: None. Limited left breast US: Echotexture: Normal appearance of the glandular tissue. Shadowing: No suspicious foci. Cyst: There is a well-circumscribed 3 mm hypoechoic nodule at the 3 o'clock position of the left debby st 2 cm from the nipple. This may represent a small benign lesion such as a fibroadenoma or intrapar enchymal lymph node. Solid lesions: None seen. Ductal dilation: None. IMPRESSION: 1. No definite evidence of malignancy is noted. 2. A six-month follow-up left mammogram and ultrasound is requested for re-evaluation. 3. The findings were discussed with the patient on the date of the examination. BI-RADS Category 3 - 6 month - Probably Benign Finding: Recommend follow-up imaging in 6 months Breast Density - Category B - Scattered areas of fibroglandular density Breast density Category C or D implies that the patient has dense breast tissue. Dense breast tissue can make it harder to find cancer on a mammogram. Dense breast tissue is also associated with an incr eased risk of breast cancer. This information about the result of the mammogram report was provided to the patient to raise their awareness. Use this report when you speak with the patient about their risks for breast cancer, which includes their family history. At that time, you may recommend additional screening tests (Ultrasoun d or MRI) as these tests may add significant information. A negative radiographic report should not delay biopsy if a dominant or clinically suspicious mass is present. Up to ten percent of cancers are not identified on mammography. A negative report may reinforce clinical impression. Adenosis and dense breasts may obscure an underlying neoplasm. False positive reports average 6 to 10%. Patient will receive a letter notifying them of these results.
== END 2022-09-03 02:13 ==
PROVIDERS: PCP Nurse Practitioner Family; Visit Provider Nurse Practitioner Family
DX: Z12.31 Encounter for screening mammogram for malignant neoplasm of breast (principal); R92.8 Other abnormal and inconclusive findings on diagnostic imaging of breast
CPT/HCPCS: 76642; 77063; 77067

== ENCOUNTER → 2023-03-12 00:48 | Outpatient (CLI) | payer BC, MEDICARE, SELFPAY ==
--- NOTE | 2023-03-12 | DI.MAMMO_ITS ---
Exam(s) MG MAMMO DIAGNOSTIC UNI US BREAST LT LIMITED EXAM: MG MAMMO DIAGNOSTIC UNI and U/S breast LT limited CLINICAL HISTORY: 6 MO F/U, F/U MAMMO, R92.8. TECHNIQUE: Craniocaudal and mediolateral oblique Full Field Digital Mammography views of the left br east with Computer Aided Diagnosis followed by Tomosynthesis and left breast ultrasound. COMPARISON: Comparison is made with prior examinations. FINDINGS: Mammography/Tomosynthesis: Masses/Architectural Distortion: No suspicious masses or areas of architectural distortion are seen. Microcalcifictions: No suspicious pleomorphic-type are seen. Skin Thickening/Nipple Retraction: None. Limited left breast US: Echotexture: Normal appearance of the glandular tissue. Shadowing: No suspicious foci. Cyst: None. Solid lesions: None seen. Ductal dilation: None. IMPRESSION: 1. No evidence of malignancy is noted. 2. Unless there is more urgent need, follow-up screening mammography is recommended, as per [employer] guidelines. 3. The findings were discussed with the patient on the date of the examination. BI-RADS Category 1 - Negative Breast Density - Category B - Scattered areas of fibroglandular density Breast density Category C or D implies that the patient has dense breast tissue. Dense breast tissue can make it harder to find cancer on a mammogram. Dense breast tissue is also associated with an incr eased risk of breast cancer. This information about the result of the mammogram report was provided to the patient to raise their awareness. Use this report when you speak with the patient about their risks for breast cancer, which includes their family history. At that time, you may recommend additional screening tests (Ultrasoun d or MRI) as these tests may add significant information. A negative radiographic report should not delay biopsy if a dominant or clinically suspicious mass is present. Up to ten percent of cancers are not identified on mammography. A negative report may reinforce clinical impression. Adenosis and dense breasts may obscure an underlying neoplasm. False positive reports average 6 to 10%. Patient will receive a letter notifying them of these results.
== END ==
PROVIDERS: PCP Nurse Practitioner Family; Visit Provider Nurse Practitioner Family
DX: Z12.31 Encounter for screening mammogram for malignant neoplasm of breast (principal); R92.8 Other abnormal and inconclusive findings on diagnostic imaging of breast
CPT/HCPCS: 76642; 77061; 77065; G0279

== ENCOUNTER 2023-09-05 09:37 | Emergency (ER) | payer BC, SELFPAY ==
[2023-09-05 09:38] VITALS: BP 151/60; PULSE 56; RESP 12; TEMP 37; O2SAT 98
--- NOTE | 2023-09-05 10:07 | ED.GENADUL_ITS ---
Discharge Plan Disposition Patient Disposition: Home Discharge Details Clinical Impression: Otitis media, URI (upper respiratory infection) Primary Care Provider: Jessica Wilson ED Provider: Arthur Abreu Home Meds and New Rx's Prescriptions: New azithromycin 250 mg tablet See Rx Instructions .ROUTE .COMPLEX Qty: 6 0RF Rx Instructions: For 250 mg dose pack: take 500 mg today (day 1), then 250 mg for 4 days (days 2-5) Continued pravastatin 40 MG tablet 40 mg PO HS losartan 100 MG tablet 100 mg PO HS sertraline 100 mg Tablet 25 mg PO HS spironolactone 25 mg tablet 2 tab PO QAM Patient Comments: TAKE 2 TABLETS BY MOUTH ONCE DAILY metformin 500 mg tablet extended release 24 hr 1 tab PO BID Patient Comments: TAKE ONE TABLET BY MOUTH EVERY DAY diltiazem HCl 240 mg capsule,extended release 24hr 1 cap PO HS Patient Comments: TAKE ONE CAPSULE BY MOUTH EVERY DAY Victoza 3-Gopal 0.6 mg/0.1 mL (18 mg/3 mL) pen injector SUBCUT Discharge Instructions Instructions: Ear Infection (ED), Upper Respiratory Infection (ED) Additional Instructions: At this time he your symptoms are consistent with an upper respiratory infection that is more likely viral than bacterial. I do feel that this infection is also what is causing your ear pain and discomfort. It is recommended to use mebn-ncf-vhziede pain medication such as 600 mg ibuprofen with 650mg acetaminophen every 6 hours for pain control. If not improving in the next 48 hours using rryl-ttn-ofgowti pain medication you may begin antibiotic therapy but please take full course of antibiotic and do not save any medication even if you are improving before the end of this. Feel free to return the emergency department for any new or significant worsening of symptoms otherwise follow-up with your primary care provider for reassessment as needed. Referrals: Jessica Wilson [Primary Care Provider] - Discharge Data Discharge Date/Time-TO BE ENTERED AT DEPARTURE: 09/05/23 10:35 HPI General Mode of arrival: ambulatory . Date/Time Provider Initiated Documentation: 09/05/23 09:38 . Limitations to Documentation: no limitations . Information obtained by: patient and RN notes reviewed . History of Present Illness 68 year old F presents to the emergency department with the chief complaint of right ear pain , described as moderate, Quality is described as sharp, Patient started experiencing this hour(s) (2) and it has been constant. No relieving factors improve symptom(s), No exacerbating factors reported . Patient notes cough; denies nausea/vomiting. Patient did receive the following treatments prior to arrival, none Related Data Home Medications Medication Instructions Recorded Confirmed losartan 100 mg tablet 100 mg PO HS 07/03/09/05/23 pravastatin 40 mg tablet 40 mg PO HS 07/04/15 09/05/23 sertraline 100 mg tablet 25 mg PO HS 05/23/20 09/05/23 spironolactone 25 mg tablet 2 tab PO QAM 01/09/22 09/05/23 diltiazem HCl 240 mg 1 cap PO HS 01/12/22 09/05/23 capsule,extended release 24 hr metformin 500 mg tablet,extended 1 tab PO BID 01/12/22 09/05/23 release 24 hr azithromycin 250 mg tablet See Rx Instructions PO .COMPLEX #6 09/05/23 tabs liraglutide 0.6 mg/0.1 mL (18 mg/3 mg subcut 09/05/23 mL) subcutaneous pen injector (Victoza 3-Gopal) Previous Rx's Medication Instructions Recorded azithromycin 250 mg tablet See Rx Instructions PO .COMPLEX #6 09/05/23 tabs Allergies Allergy/AdvReac Type Severity Reaction Status Date / Time Penicillins Allergy Intermediate Hives Verified 06/02/22 08:00 hydrochlorothiazide Allergy Mild unknown Unverified 06/02/22 08:00 amitriptyline AdvReac Severe Visual Verified 06/02/22 08:00 Disturbances metoprolol AdvReac Severe Bradycardia Verified 06/02/22 08:00 lisinopril AdvReac Mild nausea Verified 06/02/22 08:00 General Stated Complaint: EarProblem JOANNE: 4 Review of Systems Constitutional Constitutional: Denies chills, Denies fever(s), Denies headache(s) and Reports malaise ENT Ears, Nose, Mouth, and Throat: Denies ear discharge, Reports otalgia, Denies headache(s), Reports nasal congestion and Reports sore throat Respiratory Respiratory: Denies chest congestion and Reports cough Gastrointestinal Gastrointestinal: Denies nausea and Denies vomiting Neurologic Neurologic: Denies headache(s) Exam Const General: cooperative, comfortable and no acute distress Orientation: alert and awake [facility] Head: normal to inspection, normocephalic and atraumatic Ears: hearing grossly normal bilaterally, external ears normal, TM normal on the left and TM abnormal wth effusion serous, erythematous on the right and with fluid behind the TM; not bulging, not bullous and with no loss of landmarks General nose exam: external nose normal Face and sinus: no erythema Mouth: oral mucosae normal, no drooling, no muffled voice and no trismus Throat: tonsils normal, uvula midline and posterior oropharynx abnormal erythema Neck Neck: normal visual inspection, full ROM, no meningeal signs, trachea midline, supple and lymphadenopathy Resp Effort & Inspection: normal respiratory effort, able to speak in complete sentences and cough Quality of cough: dry Auscultation: clear to auscultation bilaterally Cardio Rate: regular rate Rhythm: regular rhythm Heart Sounds: S1 normal, S2 normal, normal S1 and S2, no click, no gallops, no murmurs and no rubs Skin General skin exam: no rashes or lesions noted and dry skin (warm) Neuro General: patient alert, patient awake, patient oriented x3, gait normal and moves all extremities Cognition: normal cognition Speech: speech normal Course Vital Signs Vital signs: Vital Signs Temperature 37.0 C 09/05/23 09:38 Pulse 56 L 09/05/23 09:38 Respiratory Rate 12 09/05/23 09:38 Blood Pressure 151/60 H 09/05/23 09:38 Pulse Oximetry 98 09/05/23 09:38 Temperature 37.0 C 09/05/23 09:38 Temperature Source Temporal Artery Scan 09/05/23 09:38 Pulse 56 L 09/05/23 09:38 Respiratory Rate 12 09/05/23 09:38 Respiratory Effort Normal, Non-Labored 09/05/23 09:42 Blood Pressure 151/60 H 09/05/23 09:38 Blood Pressure Position Sitting 09/05/23 09:38 Pulse Oximetry 98 09/05/23 09:38 Oxygen Delivery Method Room Air 09/05/23 09:38 Oxygen Flow Rate 0 09/05/23 09:38 Pain Level 8 09/05/23 09:51 Medical Decision Making Patient presenting to the clinic for chief complaint of right ear pain and cold symptoms. Patient reports cold symptoms(cough and sore throat) have been going on for the past 3 days. Patient does state that she performed home COVID viral testing and was negative. Physical exam shows mild posterior pharynx erythema, mild anterior cervical lymphadenopathy, right ear erythema and fluid present with no bulging or loss of landmarks, clear lung sounds and otherwise unremarkable exam. Patient has no signs of meningitis, peritonsillar abscess, retropharyngeal abscess, Darrian's angina, or life-threatening Airway infection. Patient symptoms consistent with viral respiratory infection also causing o talgia. There is possibility of early otitis media but given that patient has only had ear pain for the last couple hours since waking up I do feel that conservative management is appropriate with use of cyzu-sfe-hadaozs pain medication and monitoring for the next 48 hours. Given holiday weekend I did prescribe patient antibiotics only to be filled if not improving or significant change in symptoms. After discussion of diagnosis and plan of care patient has no further needs, questions, or concerns and states clear understanding to return to the emergency department for any worsening symptoms. This documentation was generated using [employer] dictation system, please disregard any oddities of phrase or misspellings. Quality:SDOH Health Related Social Needs: No Data to Display PFSH All Active Problems URI (upper respiratory infection) (Acute) Otitis media (Acute) Urinary incontinence (Acute) Post-menopausal bleeding (Acute 10/18/15) Hematemesis (Acute) Thickened endometrium (Acute) History of D&C (Acute) 01/04/2019 with hysteroscopy. Findings: Atrophic endometrium to lower uterine segment polyps. UTI (urinary tract infection) (Acute) 01/04/2019. Presented to ED 3 days after D&C and hysteroscopy. Cultures pending. Rx with Keflex. Status post D&C (Acute) Stress incontinence (Acute) Medical History Hx of diabetes mellitus Menopause Insomnia Restless leg syndrome Stress incontinence Hematuria Snoring Endometrial hyperplasia GERD (gastroesophageal reflux disease) Colonic polyp Depression Obesity Hyperlipidemia Hypertension Bradycardia Per pt. 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
[2023-09-05 10:33] VITALS: BP 147/71; PULSE 57; RESP 18; TEMP 36.7; O2SAT 97
== END 2023-09-05 10:35 | disposition home or self-care (01) ==
PROVIDERS: Emergency Provider Nurse Practitioner Family; PCP Nurse Practitioner Family
DX: J06.9 Acute upper respiratory infection, unspecified (principal); H66.91 Otitis media, unspecified, right ear; H92.01 Otalgia, right ear; R05.1 Acute cough; R07.0 Pain in throat
CPT/HCPCS: 99283

== ENCOUNTER 2023-12-15 08:29 | Outpatient (REF) | payer BC, SELFPAY ==
--- NOTE | 2023-12-15 07:45 | SKI_PTH ---
PATIENT: Maryanne Carrasco LOC: [facility] U#:[id number] AGE/SX: 68/F ROOM: RE12/15/[address]: Danie Lizama MD : [id number] BED: DIS: 12/15/2023 SPEC #: [id number] RECD: 12/15/23 12:48 STATUS: WALLY REAlex #: [id number] NOLAN: 12/15/23 07:[address]: Danie Lizama DEPT: Surgical Specimen RECD BY: Yulissa Howard ENTERED: 12/15/23 12:49 SP TYPE: MERT ARREDONDO DR: Jessica Wilson Tissues: 1 - SKIN BIOPSY(SHAVE/PUNCH) Procedures: SKIN LEVEL 4 Comments: [id number]
== END 2023-12-15 08:30 | disposition home or self-care (01) ==
LOC: LBN 08:29
PROVIDERS: PCP Nurse Practitioner Family; Visit Provider Otolaryngology
DX: L98.9 Disorder of the skin and subcutaneous tissue, unspecified (principal)
CPT/HCPCS: 88305

== ENCOUNTER 2024-01-12 15:11 | Outpatient (REF) | payer BC, SELFPAY ==
[2024-01-12 14:27] LABS: HCT 41.1 % (36.0-46.0); MCH 30.4 pg (27.0-33.0); MCHC 34.1 % (32.0-36.0); MCV 89 fL (80-95); Platelet Count 254 10^3/uL (130-400); RDW 12.5 % (11.7-14.6); RDW-SD 41.1 fL; WBC 7.02 10^3/uL (4.4-10.8)
[2024-01-12 14:52] LABS: ALT 23 U/L (14-59); AST 19 U/L (15-37); Albumin 3.9 g/dL (3.4-5.0); Alkaline Phosphatase 97 U/L (46-116); Anion Gap 8.8 mmol/L (3-11); BUN 14 mg/dL (7-18); Bilirubin, Total 0.61 mg/dL (0.2-1.0); CO2 27.2 mmol/L (21.0-32.0); CREATININE 0.8 mg/dL (0.55-1.02); Calcium 9.5 mg/dL (8.5-10.1); Calculated LDL 115 mg/dL (<100); Chloride 100 mmol/L (98-107); Cholesterol 186 mg/dL (<200); Estimated GFR 80.71 (mL/min/1.73m2); Glucose 98 mg/dL (74-106); HDL Cholesterol 43 mg/dL (40-60); Potassium 4.4 mmol/L (3.5-5.1); Sodium 136 mmol/L (136-145); TSH (W/Ref FT4) 2.44 uIU/mL (0.36-3.74); Total Protein 7.2 g/dL (6.4-8.2); Triglyceride 141 mg/dL (<150)
== END 2024-01-12 15:12 | disposition home or self-care (01) ==
LOC: NCHCN 15:11
PROVIDERS: PCP Nurse Practitioner Family; Visit Provider Nurse Practitioner Family
DX: R94.6 Abnormal results of thyroid function studies (principal); E11.9 Type 2 diabetes mellitus without complications
CPT/HCPCS: 80053; 80061; 85027; 84443

== ENCOUNTER 2024-01-18 01:03 | Outpatient (CLI) | payer BC, SELFPAY ==
--- NOTE | 2024-01-18 07:58 | DI.MAMMO_ITS ---
Exam(s) MAMMO SCREENING EXAM: MAMMO SCREENING CLINICAL HISTORY: screening mammo z12.31. TECHNIQUE: Bilateral full field digital CC and MLO mammographic images were obtained with 3D tomosyn thesis and utilizing computer aided detection (CAD). COMPARISON: Prior mammograms were reviewed. FINDINGS: There has been no significant change in the appearance and distribution of the fibroglandular tissue. There are no new spiculated masses nor malignant appearing microcalcification groups. There is no significant architectural distortion nor skin thickening-retraction. IMPRESSION: No radiographic evidence of malignancy. BI-RADS Category 1 - Negative Breast Density - Category B - Scattered areas of fibroglandular density Breast density Category C or D implies that the patient has dense breast tissue. Dense breast tissue can make it harder to find cancer on a mammogram. Dense breast tissue is also associated with an incr eased risk of breast cancer. This information about the result of the mammogram report was provided to the patient to raise their awareness. Use this report when you speak with the patient about their risks for breast cancer, which includes their family history. At that time, you may recommend additional screening tests (Ultrasoun d or MRI) as these tests may add significant information. A negative radiographic report should not delay biopsy if a dominant or clinically suspicious mass is present. Up to ten percent of cancers are not identified on mammography. A negative report may reinforce clinical impression. Adenosis and dense breasts may obscure an underlying neoplasm. False positive reports average 6 to 10%. Patient will receive a letter notifying them of these results.
== END 2024-01-18 01:23 ==
LOC: DI 01:03
PROVIDERS: PCP Nurse Practitioner Family; Visit Provider Nurse Practitioner Family
DX: Z12.31 Encounter for screening mammogram for malignant neoplasm of breast (principal); R92.323 Mammographic fibroglandular density, bilateral breasts
CPT/HCPCS: 77063; 77067

== ENCOUNTER 2024-07-16 12:16 | Emergency (ER) | payer OTHER, SELFPAY ==
[2024-07-16 12:18] VITALS: BP 154/84; PULSE 63; RESP 12; TEMP 36.7; O2SAT 97
--- NOTE | 2024-07-16 12:26 | ED.GENADUL_ITS ---
Discharge Plan Disposition Patient Disposition: Home Condition: Stable Discharge Details Clinical Impression: Acute UTI Primary Care Provider: Jessica Wilson ED Provider: Jack Baca Home Meds and New Rx's Prescriptions: New nitrofurantoin monohyd/m-cryst [Macrobid] 100 mg capsule 100 mg PO Q12H 5 Days Qty: 10 0RF Rx Instructions: must administer with a meal/food Continued pravastatin 40 MG tablet 80 mg PO HS losartan 100 MG tablet 100 mg PO HS sertraline 50 mg tablet 50 mg PO DAILY spironolactone 25 mg tablet 2 tab PO QAM Patient Comments: TAKE 2 TABLETS BY MOUTH ONCE DAILY diltiazem HCl 240 mg capsule,extended release 24hr 1 cap PO HS Patient Comments: TAKE ONE CAPSULE BY MOUTH EVERY DAY metformin 500 mg tablet extended release 24 hr 500 mg PO DAILY Patient Comments: TAKE ONE TABLET BY MOUTH EVERY DAY liraglutide [Victoza 3-Gopal] 0.6 mg/0.1 mL (18 mg/3 mL) pen injector 1.8 mg SUBCUT DAILY aspirin [Ecotrin Low Strength] 81 mg tablet,delayed release (DR/EC) 81 mg PO DAILY Discharge Instructions Additional Instructions: Take the antibiotic as prescribed. If you are not improving this week follow-up with your primary care provider. Make sure you drink plenty fluids to stay hydrated. If you feel significantly more ill or have new symptoms such as severe abdominal or back pain or high fevers return to the emergency department for reevaluation. HPI General Mode of arrival: ambulatory . Date/Time Provider Initiated Documentation: 07/16/24 12:19 . Limitations to Documentation: no limitations . Information obtained by: patient . History of Present Illness 69 year old F presents to the emergency department with the chief complaint of ?uti, described as moderate, Quality is described as burning, Patient started experiencing this hour(s) (6) and it has been constant. No relieving factors improve symptom(s), No exacerbating factors reported . Patient notes denies fever/chills and nausea/vomiting. Patient did receive the following treatments prior to arrival, none Related Data Home Medications ?Medication ?Instructions ?Recorded ?Confirmed losartan 100 mg tablet 100 mg PO HS 07/04/15 07/16/24 pravastatin 40 mg tablet 80 mg PO HS 07/04/15 07/16/24 spironolactone 25 mg tablet 2 tab PO QAM 01/09/22 07/16/24 diltiazem HCl 240 mg 1 cap PO HS 01/12/22 07/16/24 capsule,extended release 24 hr liraglutide 0.6 mg/0.1 mL (18 mg/3 1.8 mg subcut DAILY 09/05/23 07/16/24 mL) subcutaneous pen injector (Victoza 3-Gopal) sertraline 50 mg tablet 50 mg PO DAILY 10/13/23 07/16/24 metformin 500 mg tablet,extended 500 mg PO DAILY 11/02/23 07/16/24 release 24 hr aspirin 81 mg tablet,delayed 81 mg PO DAILY 07/16/24 07/16/24 release (Ecotrin Low Strength) nitrofurantoin 100 mg PO Q12H 5 days #10 caps 07/16/24 monohydrate/macrocrystals 100 mg capsule (Macrobid) Previous Rx's ?Medication ?Instructions ?Recorded nitrofurantoin 100 mg PO Q12H 5 days #10 caps 07/16/24 monohydrate/macrocrystals 100 mg capsule (Macrobid) Allergies Allergy/AdvReac Type Severity Reaction Status Date / Time Penicillins Allergy Intermediate Hives Verified 07/16/24 12:23 hydrochlorothiazide Allergy Mild unknown Verified 07/16/24 12:23 amitriptyline AdvReac Severe Visual Verified 07/16/24 12:23 Disturbances metoprolol AdvReac Severe Bradycardia Verified 07/16/24 12:23 lisinopril AdvReac Mild nausea Verified 07/16/24 12:23 General Stated Complaint: Urinary JOANNE: 4 Review of Systems All systems reviewed & are unremarkable except as noted in HPI and below Constitutional Constitutional: Denies chills and Denies fever(s) Cardiovascular Cardiovascular: Denies chest pain and Denies dyspnea Respiratory Respiratory: Denies cough and Denies dyspnea Gastrointestinal Gastrointestinal: Denies abdominal pain, Denies nausea and Denies vomiting Genitourinary Genitourinary: Reports dysuria Psychiatric Psychiatric: Denies depression Exam Const General: no acute distress Orientation: alert [facility] Head: normal to inspection Ears: external ears normal General nose exam: external nose normal Mouth: moist mucous membranes Eyes General: appearance normal, both eyes and all related structures Neck Neck: normal visual inspection Resp Effort & Inspection: normal respiratory effort and able to speak in complete sentences Cardio Rate: regular rate GI Palpation: soft and nontender Back/Spine/Pelvis Back: no CVA tenderness Skin General skin exam: no rashes or lesions noted Neuro General: patient alert and patient oriented x3 Extrem General: normal to inspection Psych Mental Status: mental status grossly normal Course Vital Signs Vital signs: Vital Signs Temperature 36.7 C 07/16/24 12:18 Pulse 63 07/16/24 12:18 Respiratory Rate 12 07/16/24 12:18 Blood Pressure 154/84 H 07/16/24 12:18 Pulse Oximetry 97 07/16/24 12:18 Temperature 36.7 C 07/16/24 12:18 Temperature Source Oral 07/16/24 12:18 Pulse 63 07/16/24 12:18 Respiratory Rate 12 07/16/24 12:18 Blood Pressure 154/84 H 07/16/24 12:18 Blood Pressure Position Sitting 07/16/24 12:18 Pulse Oximetry 97 07/16/24 12:18 Oxygen Delivery Method Room Air 07/16/24 12:18 Oxygen Flow Rate 0 07/16/24 12:18 Pain Level 1 07/16/24 12:21 Medical Decision Making 69-year-old female comes in with complaints of bloody urine and painful urination starting this morning. She denies any fevers, back pain or abdominal pain, she says this feels similar to prior UTIs she has had. She is well- appearing on exam. She has no CVA tenderness or abdominal tenderness. Given her complaints I suspect cystitis, will check a UA and reassess. Given her well appearance and lack of other symptoms I do not feel blood work is indicated. Has no findings on exam to suggest Jose so I do not feel any imaging is indicated either. Patient positive for leukocytes will initiate antibiotics with Macrobid. She is stable for discharge and will follow-up with her PCP if not improving within a week, return precautions given Quality:SDOH Health Related Social Needs: No Data to Display PFSH All Active Problems (Updated 07/16/24 @ 12:54 by Jack Baca MD) Acute UTI (Acute) Skin lesion (Acute) Acute serous otitis media, right ear (Acute) Urinary incontinence (Acute) Post-menopausal bleeding (Acute 10/18/15) Hematemesis (Acute) Thickened endometrium (Acute) History of D&C (Acute) 01/04/2019 with hysteroscopy. Findings: Atrophic endometrium to lower uterine segment polyps. UTI (urinary tract infection) (Acute) 01/04/2019. Presented to ED 3 days after D&C and hysteroscopy. Cultures pending. Rx with Keflex. Status post D&C (Acute) Stress incontinence (Acute) Medical History (Updated 07/16/24 @ 12:54 by Jack Baca MD) Palpitations MINDY (obstructive sleep apnea) History of colon polyps Onychomycosis Major depression Type 2 diabetes mellitus Aortic ectasia, thoracic Dysfunction of both eustachian tubes Hx of diabetes mellitus Menopause Insomnia Restless leg syndrome Stress incontinence Hematuria Snoring Endometrial hyperplasia GERD (gastroesophageal reflux disease) Colonic polyp Depression Obesity Hyperlipidemia Hypertension Bradycardia Per pt. reports low 50's Pedal edema Left knee pain Dyspnea on exertion Subclinical hypothyroidism Hematemesis Epigastric pain Surgical History Hx of colonoscopy History of esophagogastroduodenoscopy (EGD) (02/22/18) dr vivas, normal Tubal Ligation, Laparoscopic Family History (Updated 10/13/23 @ 09:38 by Rosana Alvarez) Maternal Uncle Colon cancer Maternal Aunt Colon cancer Other Breast cancer Hyperlipidemia Hypertension Social History Smoking/Tobacco Use Status: Never Smoking risk assessment performed?: Yes Alcohol Intake: former Drug use: Never Substance use type: does not use Household members: spouse and other Details: [facility] Housing: house Number of Children: 3 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
[2024-07-16 12:47] LABS: Bilirubin Negative (Negative); Blood Large (Negative); Clarity Cloudy (Clear); Glucose Negative (Negative); Ketones Negative (Negative); Leukocyte Esterase Trace (Negative); Nitrite Negative (Negative); Specific Gravity 1.025 (1.005-1.025); Urobilinogen 0.2 mg/dL (Up to 0.2); pH 5.5 (5-8)
[2024-07-16] MEDS: MacroBID 100 MG CAP, 2 CAPS/BTL PO (13:01)
[2024-07-16 13:02] VITALS: BP 154/80; PULSE 63; RESP 16; TEMP 36.4; O2SAT 99
[2024-07-16 13:04] LABS: Bacteria Few HPF (Negative); C & S Indicated? No; Casts Negative LPF (Negative); Crystals Negative HPF (Negative); Epithelial Cells Few HPF (Negative); Mucus Negative (Negative); RBC >50 HPF (0-2)
== END 2024-07-16 13:05 | disposition home or self-care (01) ==
PROVIDERS: Emergency Provider Emergency Medicine; PCP Nurse Practitioner Family
DX: N39.0 Urinary tract infection, site not specified (principal); E11.9 Type 2 diabetes mellitus without complications; I10 Essential (primary) hypertension; E78.5 Hyperlipidemia, unspecified; Z79.82 Long term (current) use of aspirin; Z79.899 Other long term (current) drug therapy
CPT/HCPCS: 99283; 81003; 81015

== ENCOUNTER 2024-10-24 20:20 | Outpatient (REF) | payer OTHER, SELFPAY ==
[2024-10-24 21:11] LABS: Glucose Negative (Negative)
[2024-10-24 21:17] LABS: C & S Indicated? No; RBC Negative HPF (0-2); WBC Negative HPF (0-5)
== END 2024-10-24 20:21 | disposition home or self-care (01) ==
LOC: NCHCN 20:20
PROVIDERS: PCP Nurse Practitioner Family; Visit Provider Nurse Practitioner Family
DX: R31.29 Other microscopic hematuria (principal); R82.89 Other abnormal findings on cytological and histological examination of urine
CPT/HCPCS: 81003; 81015

== ENCOUNTER 2024-11-22 15:52 | Outpatient (REF) | payer OTHER, SELFPAY ==
[2024-11-22 21:17] LABS: ALT 27 U/L (14-59); AST 19 U/L (15-37); Albumin 4.0 g/dL (3.4-5.0); Alkaline Phosphatase 102 U/L (46-116); Anion Gap 9.2 mmol/L (3-11); BUN 16 mg/dL (7-18); Bilirubin, Total 0.3 mg/dL (0.2-1.0); CO2 26.8 mmol/L (21.0-32.0); Calcium 9.7 mg/dL (8.5-10.1); Chloride 104 mmol/L (98-107); Estimated GFR 94.15 (mL/min/1.73m2); Glucose 145 mg/dL (74-106); NT-proBNP 39 pg/mL (<300); Potassium 4.0 mmol/L (3.5-5.1); Sodium 140 mmol/L (136-145); Total Protein 7.0 g/dL (6.4-8.2)
== END 2024-11-22 15:53 | disposition home or self-care (01) ==
LOC: NCHCN 15:52
PROVIDERS: PCP Nurse Practitioner Family; Visit Provider Nurse Practitioner Family
DX: R07.89 Other chest pain (principal)
CPT/HCPCS: 80053; 83880